=== PATIENT | female | born 1955 | race African-American/Black ===

== ENCOUNTER → 2016-11-26 | Outpatient (CLI) | payer MEDICARE ==
[2016-11-28 08:45] LABS: ABSOLUTE BASOPHILS # (AUTO) 0.1 10^3/uL (0.0-0.2); ABSOLUTE EOSINOPHILS # (AUTO) 0.2 10^3/uL (0.0-0.6); ABSOLUTE LYMPHOCYTES (AUTO) 3.1 10^3/uL (0.5-4.7); ABSOLUTE MONOCYTES (AUTO) 0.5 10^3/uL (0.1-1.4); ABSOLUTE NEUT (AUTO) 5.3 10^3/uL (1.7-8.2); BASOPHILS % (AUTO) 1.1 % (0-2); EOSINOPHILS % (AUTO) 2.3 % (0-6); HEMATOCRIT 44.1 % (36.0-47.0); HEMOGLOBIN 14.8 g/dL (12.0-15.5); HGB HCT DIFFERENCE 0.3; LYMPHOCYTES % (AUTO) 33.5 % (13-45); MEAN CORPUSCULAR HEMOGLOBIN 27.2 pg (27.0-33.4); MEAN CORPUSCULAR HGB CONC 33.5 g/dL (32.0-36.0); MEAN CORPUSCULAR VOLUME 81 fl (80-97); MONOCYTES % (AUTO) 5.6 % (3-13); RED BLOOD COUNT 5.43 10^6/uL (3.72-5.28); RED CELL DISTRIBUTION WIDTH 14.7 % (11.5-14.0); SEGMENTED NEUTROPHILS % (AUTO) 57.5 % (42-78); WHITE BLOOD COUNT 9.2 10^3/uL (4.0-10.5)
[2016-11-28 08:57] LABS: ALANINE AMINOTRANSFERASE 32 U/L (9-52); ALKALINE PHOSPHATASE 106 U/L (38-126); ANION GAP 7 (5-19); ASPARTATE AMINO TRANSFERASE 18 U/L (14-36); BILIRUBIN,DIRECT 0.3 mg/dL (0.0-0.4); BILIRUBIN,TOTAL 0.7 mg/dL (0.2-1.3); BLOOD UREA NITROGEN 11 mg/dL (7-20); CALCIUM 10.1 mg/dL (8.4-10.2); CARBON DIOXIDE 31 mmol/L (22-30); CHLORIDE 105 mmol/L (98-107); CREATININE RESULT 0.88 mg/dL (0.52-1.25); GLUCOSE 190 mg/dL (75-110); POTASSIUM 4.4 mmol/L (3.6-5.0); SODIUM 142.6 mmol/L (137-145)
== END ==
LOC: OD 11:54
PROVIDERS: ATTEND Internal Medicine
DX: R73.9 Hyperglycemia, unspecified (principal); Z12.11 Encounter for screening for malignant neoplasm of colon
CPT/HCPCS: 36415; 80053; 83036; 85025

== ENCOUNTER 2019-01-03 07:53 | Inpatient (IN) | payer MEDICARE ==
[2019-01-03] MEDS ORDERED: IPRATROPIUM/ALBUTEROL 0.5-2.5 MG/3 ML AMPUL NEB ONE (08:17)
[2019-01-03] MEDS ORDERED: ALBUTEROL SULFATE 0.083% NEB 2.5 MG/3 ML AMPUL NEB ONE ×3 (08:17→11:26)
[2019-01-03] MEDS ORDERED: METHYLPREDNISOLONE INJ 125 MG/2 ML SDV IV ONE (08:17)
--- NOTE | 2019-01-03 08:21 | ER Document Report ---
ED Respiratory Problem - General Chief Complaint: Breathing Difficulty Stated Complaint: CHEST PAIN,DIFFICULTY BREATHING Time Seen by Provider: 01/03/19 08:11 Notes: 63 year old female with h/o htn and asthma complains of cough and wheeze and sob for 3 days. No fever or chills. No sick contacts and she has no h/o cad. Nonsmoker. TRAVEL OUTSIDE OF THE [place] IN LAST 30 DAYS: No - HPI Patient complains to provider of: Asthma Onset: Other - 3 days total Duration: Continuous Quality of pain: Achy Severity: Moderate Pain Level: 1 Short of Breath: Moderate Sputum amount: None - Related Data Allergies/Adverse Reactions: Aspirin Allergy (Uncoded 01/03/19 08:12) Crabs Allergy (Uncoded 01/03/19 08:12) Past Medical History - Social History Smoking Status: Never Smoker Chew tobacco use (# tins/day): No Frequency of alcohol use: None Drug Abuse: None Patient has suicidal ideation: No Patient has homicidal ideation: No Review of Systems - Review of Systems Constitutional: No symptoms reported EENT: No symptoms reported Cardiovascular: No symptoms reported Respiratory: See HPI, Cough Gastrointestinal: No symptoms reported Genitourinary: No symptoms reported Female Genitourinary: No symptoms reported Musculoskeletal: No symptoms reported Skin: No symptoms reported Hematologic/Lymphatic: No symptoms reported Neurological/Psychological: No symptoms reported Physical Exam - Vital signs Vitals: Temp Pulse Resp BP Pulse Ox 98.4 F 95 24 H 187/90 H 93 01/03/19 08:03 01/03/19 08:03 01/03/19 08:03 01/03/19 08:03 01/03/19 08:03 Interpretation: Normal - General General appearance: Appears well, Alert - HEENT Head: Normocephalic, Atraumatic Eyes: Normal Pupils: PERRL - Respiratory Respiratory status: Respiratory distress - mild Chest status: Nontender Breath sounds: Decreased air movement, Wheezing Chest palpation: Normal - Cardiovascular Rhythm: Regular Heart sounds: Normal auscultation Murmur: No - Abdominal Inspection: Normal Distension: No distension Bowel sounds: Normal Tenderness: Nontender Organomegaly: No organomegaly - Back Back: Normal, Nontender - Extremities General upper extremity: Normal inspection, Nontender, Normal color, Normal ROM, Normal temperature General lower extremity: Normal inspection, Nontender, Normal color, Normal ROM, Normal temperature, Normal weight bearing. No: Shady's sign - Neurological Neuro grossly intact: Yes Cognition: Normal Orientation: AAOx4 [place] Coma Scale Eye Opening: Spontaneous Leonidas Coma Scale Verbal: Oriented Leonidas Coma Scale Motor: Obeys Commands Leonidas Coma Scale Total: 15 Speech: Normal Motor strength normal: LUE, RUE, LLE, RLE Sensory: Normal - Psychological Associated symptoms: Normal affect, Normal mood - Skin Skin Temperature: Warm Skin Moisture: Dry Skin Color: Normal Course - Re-evaluation Re-evalutation: 01/03/19 13:04 MDM 63 year old with cough and wheeze and sob. No fever. Moderately htn still. With sob episodes she has some left scapular pain. I have called and spoken with Grace and then Kristal who will graciously admit pt for further evaluation. - Vital Signs Vital signs: Temp Pulse Resp BP Pulse Ox 98.4 F 95 19 209/102 H 99 01/03/19 08:03 01/03/19 08:03 01/03/19 11:32 01/03/19 11:32 01/03/19 11:32 - Laboratory Result Diagrams: 01/03/19 08:30 01/03/19 08:30 Laboratory results interpreted by me: 01/03/19 01/03/19 08:30 08:30 RBC 5.54 H MCH 26.9 L RDW 14.3 H Glucose 189 H Creatine Kinase 198 H - Diagnostic Test Radiology reviewed: Image reviewed, Reports reviewed - EKG Interpretation by Me EKG shows normal: Sinus rhythm Rate: Normal Rhythm: NSR - NSR Nl Walters no st elevation or depression my interpretation. Critical Care Note - Critical Care Note Total time excluding time spent on procedures (mins): 30 Discharge - Discharge Clinical Impression: Dyspnea Qualifiers: Dyspnea type: unspecified Qualified Code(s): R06.00 - Dyspnea, unspecified Condition: Good Disposition: ADMITTED INPATIENT Admitting Provider: Kristal (Hospitalist) Unit Admitted: Telemetry
[2019-01-03 09:03] LABS: ABSOLUTE BASOPHILS # (AUTO) 0.1 10^3/uL (0.0-0.2); ABSOLUTE EOSINOPHILS # (AUTO) 0.4 10^3/uL (0.0-0.6); ABSOLUTE LYMPHOCYTES (AUTO) 2.4 10^3/uL (0.5-4.7); ABSOLUTE MONOCYTES (AUTO) 0.6 10^3/uL (0.1-1.4); ABSOLUTE NEUT (AUTO) 5.9 10^3/uL (1.7-8.2); BASOPHILS % (AUTO) 0.6 % (0-2); EOSINOPHILS % (AUTO) 4.2 % (0-6); HEMATOCRIT 44.7 % (36.0-47.0); HEMOGLOBIN 14.9 g/dL (12.0-15.5); MEAN CORPUSCULAR HEMOGLOBIN 26.9 pg (27.0-33.4); MEAN CORPUSCULAR HGB CONC 33.4 g/dL (32.0-36.0); MEAN CORPUSCULAR VOLUME 81 fl (80-97); MONOCYTES % (AUTO) 6.8 % (3-13); PLATELET COUNT 227 10^3/uL (150-450); RED BLOOD COUNT 5.54 10^6/uL (3.72-5.28); RED CELL DISTRIBUTION WIDTH 14.3 % (11.5-14.0); SEGMENTED NEUTROPHILS % (AUTO) 62.4 % (42-78); TOTAL CELLS COUNTED % (AUTO) 100 %; WHITE BLOOD COUNT 9.4 10^3/uL (4.0-10.5)
[2019-01-03 09:04] LABS: ALBUMIN 4.4 g/dL (3.5-5.0); ALKALINE PHOSPHATASE 100 U/L (38-126); ANION GAP 9 (5-19); ASPARTATE AMINO TRANSFERASE 22 U/L (14-36); BILIRUBIN,DIRECT 0.1 mg/dL (0.0-0.4); BILIRUBIN,TOTAL 0.6 mg/dL (0.2-1.3); BLOOD UREA NITROGEN 9 mg/dL (7-20); CARBON DIOXIDE 27 mmol/L (22-30); CHLORIDE 105 mmol/L (98-107); CREATINE KINASE 198 U/L (30-135); GLUCOSE 189 mg/dL (75-110); POTASSIUM 4.1 mmol/L (3.6-5.0); TOTAL PROTEIN 7.3 g/dL (6.3-8.2)
--- NOTE | 2019-01-03 09:11 | RADIOLOGY REPORT (SQ) ---
EXAM DESCRIPTION: CHEST SINGLE VIEW COMPLETED DATE/TIME: 01/03/2019 8:53 am REASON FOR STUDY: htn COMPARISON: None. EXAM PARAMETERS: NUMBER OF VIEWS: One view. TECHNIQUE: Single frontal radiographic view of the chest acquired. RADIATION DOSE: NA LIMITATIONS: None. FINDINGS: LUNGS AND PLEURA: No opacities, masses or pneumothorax. No pleural effusion. MEDIASTINUM AND HILAR STRUCTURES: No masses. Contour normal. HEART AND VASCULAR STRUCTURES: Heart normal in size. Normal vasculature. BONES: No acute findings. HARDWARE: None in the chest. OTHER: No other significant finding. IMPRESSION: NO ACUTE RADIOGRAPHIC FINDING IN THE CHEST. TECHNICAL DOCUMENTATION: JOB ID: [id number]- All Rights Reserved Reading location - IP/workstation name: [email or web address]
[2019-01-03 09:15] LABS: NT PRO BNP 122 pg/mL (5-900)
--- NOTE | 2019-01-03 09:18 | EKG REPORT ---
SEVERITY:- ABNORMAL ECG - SINUS RHYTHM PROBABLE LEFT ATRIAL ABNORMALITY PROBABLE LEFT VENTRICULAR HYPERTROPHY : Confirmed by: Lazara Conrad 03-Jan-2019 09:17:00
[2019-01-03 09:19] LABS: TROPONIN I < 0.012 ng/mL
[2019-01-03] MEDS ORDERED: CARVEDILOL 12.5 MG TABLET PO ONE (11:25)
[2019-01-03] MEDS ORDERED: HYDRALAZINE HCL INJ/PF 20 MG/1 ML SDV IV ONE (12:29)
--- NOTE | 2019-01-03 15:04 | PDOC H&P ---
History of Present Illness Admission Date/PCP: 01/03/19 13:10 Patient complains of: SOB, wheezing History of Present Illness: DIETER HUNTER is a 63 year old female with no significant past medical history aside from hypertension and well-controlled asthma who presented with wheezing and increasing shortness of breath. Patient says that his asthma has been well controlled and she has not had an attack in the past 20 years. She says that 1 of her grandkids had a URTI a few days ago and she shared a water container with the grandkid and after a few days she started having the same symptoms of sneezing, runny nose and coughing. She says that the coughing started to be more productive with yellowish and greenish sputum. She says that she then developed progressive shortness of breath since Monday. She says she also could appreciate associated wheezing. She denies any fever or chills. In the ER, she was noted to have significant bilateral whee zing and was found to be tachypneic. She was given breathing treatments and IV steroids and did get some relief. She says she does not have chest pain but it is more of her chest discomfort which she described "as if water is rising up on my chest". Upon encounter, she still has bilateral wheezing. She says the breathing treatments did help but she is now starting to feel short of breath again. Past Medical History Cardiac Medical History: Reports: Hypertension Pulmonary Medical History: Reports: Asthma Endocrine Medical History: Reports: Diabetes Mellitus Type 2 Social History Smoking Status: Never Smoker Family History Parental Family History Reviewed: Yes - Patient's brother did have an NE at 44 years old and her mother had NE as Children Family History Reviewed: No Sibling(s) Family History Reviewed.: No Medication/Allergy Allergies/Adverse Reactions: Aspirin Allergy (Unknown, Uncoded 01/03/19 14:39) Crabs Allergy (Uncoded 01/03/19 08:12) Review of Systems All systems: reviewed and no additional remarkable complaints except as stated - As mentioned in HPI Physical Exam Vital Signs: Temp Pulse Resp BP Pulse Ox 98.4 F 95 23 H 177/95 H 100 01/03/19 08:03 01/03/19 08:03 01/03/19 14:02 01/03/19 14:02 01/03/19 14:02 Intake & Output 01/02/19 01/03/19 01/04/19 06:59 06:59 06:59 Weight 211 lb 10.3 oz General appearance: PRESENT: no acute distress, well-developed, well-nourished Head exam: PRESENT: atraumatic, normocephalic Eye exam: PRESENT: conjunctiva pink, EOMI, PERRLA. ABSENT: scleral icterus Ear exam: PRESENT: normal external ear exam Mouth exam: PRESENT: moist, tongue midline Neck exam: ABSENT: carotid bruit, JVD, lymphadenopathy, thyromegaly Respiratory exam: PRESENT: rhonchi, wheezes. ABSENT: rales Cardiovascular exam: PRESENT: RRR. ABSENT: diastolic murmur, rubs, systolic murmur Pulses: PRESENT: normal dorsalis pedis pul GI/Abdominal exam: PRESENT: normal bowel sounds, soft. ABSENT: distended, guarding, mass, organolmegaly, rebound, tenderness Rectal exam: PRESENT: deferred Extremities exam: PRESENT: full ROM. ABSENT: calf tenderness, clubbing, pedal edema Neurological exam: PRESENT: alert, awake, oriented to person, oriented to place, oriented to time, oriented to situation, CN II-XII grossly intact. ABSENT: motor sensory deficit Results Laboratory Results: 01/03/19 08:30 01/03/19 08:30 01/03/19 01/03/19 08:30 08:30 WBC 9.4 RBC 5.54 H Hgb 14.9 Hct 44.7 MCV 81 MCH 26.9 L MCHC 33.4 RDW 14.3 H Plt Count 227 Seg Neutrophils % 62.4 Sodium 141.0 Potassium 4.1 Chloride 105 Carbon Dioxide 27 Anion Gap 9 BUN 9 Creatinine 0.74 Est GFR ( Amer) > 60 Glucose 189 H Calcium 10.0 Total Bilirubin 0.6 AST 22 Alkaline Phosphatase 100 Total Protein 7.3 Albumin 4.4 01/03/19 01/03/19 08:30 08:30 Creatine Kinase 198 H CK-MB (CK-2) 1.50 Troponin I < 0.012 NT-Pro-B Natriuret Pep 122 Impressions: Chest X-Ray 01/03/19 08:16 IMPRESSION: NO ACUTE RADIOGRAPHIC FINDING IN THE CHEST. Assessment and Plan - Diagnosis (1) Acute respiratory failure with hypoxia Is this a current diagnosis for this admission?: Yes Plan: There is a asthma exacerbation. Currently saturating on 2 L nasal cannula. BiPAP PRN. (2) Asthma exacerbation Is this a current diagnosis for this admission?: Yes Plan: We will start patient on Solu-Medrol 40 mg IV every 8. Scheduled breathing treatments. Will empirically start her on Rocephin and she does complain of significantly productive of yellowish to greenish sputum. Will order for sputum culture as well. (3) Hypertensive urgency Is this a current diagnosis for this admission?: Yes Plan: Blood pressure in the ER was elevated at 209/102. Will start patient on losartan can090 mg daily. Will also add hydralazine PRN. - Time Time Spent with patient: 25-34 minutes
--- NOTE | 2019-01-03 15:07 | ADVANCED CARE ---
- Diagnosis (1) Acute respiratory failure with hypoxia Diagnosis Current: Yes (2) Asthma exacerbation Diagnosis Current: Yes (3) Hypertensive urgency Diagnosis Current: Yes Resuscitation Status: Do Not Resuscitate Discussion: Discussed with patient. She says she does not want to receive any form of chest compressions, defibrillation or mechanical ventilation if the need arises. She will be a DNR/DNI. She says her daughter, Taras is her surrogate medical decision maker.
[2019-01-03] MEDS: LOSARTAN POTASSIUM 50 MG TABLET PO SCH (15:18)
[2019-01-03] MEDS: CEFTRIAXONE 1 GM/D5W RTU 1 GM/50 ML RTUPB IV SCH (15:19)
[2019-01-03] MEDS: IPRATROPIUM/ALBUTEROL 0.5-2.5 MG/3 ML AMPUL NEB SCH ×2 (15:19→20:39)
[2019-01-03] MEDS: HYDRALAZINE HCL INJ/PF 20 MG/1 ML SDV IV PRN ×2 (15:19→20:30)
[2019-01-03 16:55] LABS: ARTERIAL BLOOD FIO2 ROOM AIR; ARTERIAL BLOOD H2CO3 1.02 mmol/L (1.05-1.35); ARTERIAL BLOOD O2 SATURATION 92.8 % (94-98); ARTERIAL BLOOD PCO2 33.8 mmHg (35-45); ARTERIAL BLOOD PH 7.47 (7.35-7.45); ARTERIAL BLOOD PO2 60.5 mmHg (80-100); ARTERIAL BLOOD TOTAL CO2 25.1 mmol/L (21-25)
[2019-01-03] MEDS: AMLODIPINE BESYLATE 10 MG TABLET PO SCH (18:48)
[2019-01-03] MEDS ORDERED: LABETALOL HCL INJ 20 MG/4 ML DISP.SYRIN IV ONE (19:00)
[2019-01-03] MEDS: HEPARIN SOD (PORCINE) 5,000 UNIT/ML 1 ML VIAL SUBCUT SCH (21:55)
[2019-01-03] MEDS: METHYLPREDNISOLONE INJ 40 MG/1 ML SDV IV SCH (21:55)
[2019-01-04] MEDS: IPRATROPIUM/ALBUTEROL 0.5-2.5 MG/3 ML AMPUL NEB SCH ×6 (00:14→20:19)
[2019-01-04] MEDS ORDERED: TRAZODONE HCL 50 MG TABLET PO ONE (01:00)
[2019-01-04] MEDS: HYDRALAZINE HCL INJ/PF 20 MG/1 ML SDV IV PRN ×2 (04:06→19:49)
[2019-01-04] MEDS: METHYLPREDNISOLONE INJ 40 MG/1 ML SDV IV SCH ×3 (05:46→22:23)
[2019-01-04] MEDS: AMLODIPINE BESYLATE 10 MG TABLET PO SCH (10:07)
[2019-01-04] MEDS: LOSARTAN POTASSIUM 50 MG TABLET PO SCH (10:07)
[2019-01-04] MEDS: HEPARIN SOD (PORCINE) 5,000 UNIT/ML 1 ML VIAL SUBCUT SCH ×2 (10:07→22:22)
[2019-01-04] MEDS: CEFTRIAXONE 1 GM/D5W RTU 1 GM/50 ML RTUPB IV SCH (11:52)
--- NOTE | 2019-01-04 15:28 | RADIOLOGY REPORT (SQ) ---
EXAM DESCRIPTION: CHEST 2 VIEWS COMPLETED DATE/TIME: 01/04/2019 3:00 pm REASON FOR STUDY: SOB, ALSO FOR NM VQ SCAN COMPARISON: 01/03/2019. EXAM PARAMETERS: NUMBER OF VIEWS: two views TECHNIQUE: Digital Frontal and Lateral radiographic views of the chest acquired. RADIATION DOSE: NA LIMITATIONS: none FINDINGS: LUNGS AND PLEURA: No opacities, masses or pneumothorax. No pleural effusion. MEDIASTINUM AND HILAR STRUCTURES: No masses or contour abnormalities. HEART AND VASCULAR STRUCTURES: Heart normal size. No evidence for failure. BONES: No acute findings. HARDWARE: None in the chest. OTHER: No other significant finding. IMPRESSION: NO ACUTE RADIOGRAPHIC FINDING IN THE CHEST. TECHNICAL DOCUMENTATION: JOB ID: [id number]- All Rights Reserved Reading location - IP/workstation name: [email or web address]
--- NOTE | 2019-01-04 16:09 | RADIOLOGY REPORT (SQ) ---
EXAM DESCRIPTION: NM LUNG VENT/PERF SCAN COMPLETED DATE/TIME: 01/04/2019 3:37 pm REASON FOR STUDY: SOB, assess for PE COMPARISON: None. RADIONUCLIDE AND DOSE: 5.29 millicuries TC-99m MAA Intravenous 27.1 millicuries TC-99m DTPA Inhaled aerosol TECHNIQUE: Two views of the lungs acquired post ventilation of DTPA aerosol. Eight matching views o f the lungs acquired following injection of MAA. LIMITATIONS: Limited ventilation images due to difficult patient cooperation. FINDINGS: VENTILATION: Heterogenous distribution. PERFUSION: Perfusion images with normal homogenous activity and no wedge-shaped or segmental defects. No ventilation-perfusion mismatches. OTHER: No other significant finding. IMPRESSION: HETEROGENOUS DISTRIBUTION ON VENTILATION IMAGES. NORMAL PERFUSION LUNG SCAN. NEGATIVE FOR PULMONARY EMBOLI. TECHNICAL DOCUMENTATION: JOB ID: [id number] [employer] [employer]- All Rights Reserved Reading location - IP/workstation name: [email or web address]
[2019-01-04] MEDS: GUAIFENESIN SYRP 200 MG/10 ML UDC PO PRN ×2 (16:16→22:22)
--- NOTE | 2019-01-04 16:16 | PDOC PROGRESS REPORT ---
Subjective Progress Note for:: 01/04/19 Subjective:: This is a 63 year old female with no significant past medical history aside from hypertension and well-controlled asthma who presented with wheezing and increasing shortness of breath. She was admitted for asthma exacerbation. Started on IV steroids and scheduled breathing treatments. No acute event overnight. Upon encounter, she appears comfortable. She says he r shortness of breath is better today but she is definitely not at her baseline yet. She has bilateral wheezing albeit improved from yesterday. She denies chest pain. Reason For Visit: ACUTE HYPOXIC RESPIRATORY FAILURE, ASTHAMA Physical Exam Vital Signs: Temp Pulse Resp BP Pulse Ox 98.3 F 104 H 17 168/53 H 97 01/04/19 11:11 01/04/19 14:00 01/04/19 13:44 01/04/19 11:11 01/04/19 13:44 Intake & Output 01/03/19 01/04/19 01/05/19 06:59 06:59 06:59 Intake Total 850 0 Balance 850 0 Weight 210 lb 12.191 oz General appearance: PRESENT: no acute distress, well-developed, well-nourished Head exam: PRESENT: atraumatic, normocephalic Eye exam: PRESENT: conjunctiva pink, EOMI, PERRLA. ABSENT: scleral icterus Ear exam: PRESENT: normal external ear exam Mouth exam: PRESENT: moist, tongue midline Neck exam: ABSENT: carotid bruit, JVD, lymphadenopathy, thyromegaly Respiratory exam: PRESENT: wheezes. ABSENT: rales, rhonchi Cardiovascular exam: PRESENT: RRR. ABSENT: diastolic murmur, rubs, systolic murmur Pulses: PRESENT: normal dorsalis pedis pul GI/Abdominal exam: PRESENT: normal bowel sounds, soft. ABSENT: distended, guarding, mass, organolmegaly, rebound, tenderness Rectal exam: PRESENT: deferred Extremities exam: PRESENT: full ROM. ABSENT: calf tenderness, clubbing, pedal edema Neurological exam: PRESENT: alert, awake, oriented to person, oriented to place, oriented to time, oriented to situation, CN II-XII grossly intact. ABSENT: motor sensory deficit Results Laboratory Results: 01/03/19 08:30 01/03/19 08:30 01/03/19 16:42 Carbonic Acid 1.02 L HCO3/H2CO3 Ratio 23:1 ABG pH 7.47 H ABG pCO2 33.8 L ABG pO2 60.5 L ABG HCO3 24.0 ABG O2 Saturation 92.8 L ABG Base Excess 1.0 FiO2 ROOM AIR 01/03/19 22:00 Sputum Gram Stain - Final 01/03/19 22:00 Sputum Sputum Culture - Final 01/03/19 01/03/19 08:30 08:30 Creatine Kinase 198 H CK-MB (CK-2) 1.50 Troponin I < 0.012 NT-Pro-B Natriuret Pep 122 Impressions: Chest X-Ray 01/04/19 00:00 IMPRESSION: NO ACUTE RADIOGRAPHIC FINDING IN THE CHEST. Assessment and Plan - Diagnosis (1) Acute respiratory failure with hypoxia Is this a current diagnosis for this admission?: Yes Plan: Secondary to asthma exacerbation. Currently saturating on 2 L nasal cannula. BiPAP PRN. (2) Asthma exacerbation Is this a current diagnosis for this admission?: Yes Plan: Continue Solu-Medrol and scheduled breathing treatments. (3) Hypertensive urgency Is this a current diagnosis for this admission?: Yes Plan: Improved. Continue amlodipine and losartan. - Time Time Spent with patient: 25-34 minutes
[2019-01-04] MEDS: TRAZODONE HCL 50 MG TABLET PO SCH (22:22)
[2019-01-05] MEDS: IPRATROPIUM/ALBUTEROL 0.5-2.5 MG/3 ML AMPUL NEB SCH ×2 (02:12→07:42)
[2019-01-05] MEDS: HYDRALAZINE HCL INJ/PF 20 MG/1 ML SDV IV PRN ×2 (03:35→12:39)
[2019-01-05] MEDS: METHYLPREDNISOLONE INJ 40 MG/1 ML SDV IV SCH ×3 (06:16→21:06)
[2019-01-05] MEDS: HEPARIN SOD (PORCINE) 5,000 UNIT/ML 1 ML VIAL SUBCUT SCH ×2 (10:35→21:06)
[2019-01-05] MEDS: AMLODIPINE BESYLATE 10 MG TABLET PO SCH (10:35)
[2019-01-05] MEDS: GUAIFENESIN SYRP 200 MG/10 ML UDC PO PRN (10:35)
[2019-01-05] MEDS: LOSARTAN POTASSIUM 50 MG TABLET PO SCH (10:35)
[2019-01-05] MEDS: LEVALBUTEROL HCL NEB 1.25 MG/3 ML AMPUL NEB SCH ×2 (11:00→16:02)
[2019-01-05] MEDS: CEFTRIAXONE 1 GM/D5W RTU 1 GM/50 ML RTUPB IV SCH (11:25)
[2019-01-05] MEDS: POLYETHYLENE GLYCOL 3350 POWDER 17 GM/1 PACKET PO PRN ×2 (12:39→21:06)
--- NOTE | 2019-01-05 14:17 | PDOC PROGRESS REPORT ---
Subjective Progress Note for:: 01/05/19 Subjective:: This is a 63 year old female with no significant past medical history aside from hypertension and well-controlled asthma who presented with wheezing and increasing shortness of breath. She was admitted for asthma exacerbation. Started on IV steroids and scheduled breathing treatments. 01/04: Upon encounter, she appears comfortable. She says her shortness of breath is better today but she is definitely not at her baseline yet. She has bilateral wheezing albeit improved from yesterday. She denies chest pain. 01/05: No acute event overnight. Patient reportedly had after breathing treatments but reported she had recurrence of shortness of breath and wheezing after she went to the bathroom. Upon encounter, she does have bilateral wheezing slightly more prominent compared to yesterday. Reason For Visit: ACUTE HYPOXIC RESPIRATORY FAILURE, ASTHAMA Physical Exam Vital Signs: Temp Pulse Resp BP Pulse Ox 97.6 F 94 18 170/69 H 93 01/05/19 11:36 01/05/19 11:36 01/05/19 11:00 01/05/19 11:36 01/05/19 11:36 Intake & Output 01/04/19 01/05/19 01/06/19 06:59 06:59 06:59 Intake Total 850 1490 Balance 850 1490 Weight 210 lb 12.191 oz 212 lb 8.41 oz General appearance: PRESENT: no acute distress, well-developed, well-nourished Head exam: PRESENT: atraumatic, normocephalic Eye exam: PRESENT: conjunctiva pink, EOMI, PERRLA. ABSENT: scleral icterus Ear exam: PRESENT: normal external ear exam Mouth exam: PRESENT: moist, tongue midline Neck exam: ABSENT: carotid bruit, JVD, lymphadenopathy, thyromegaly Respiratory exam: PRESENT: wheezes. ABSENT: rales, rhonchi Cardiovascular exam: PRESENT: RRR. ABSENT: diastolic murmur, rubs, systolic murmur Pulses: PRESENT: normal dorsalis pedis pul GI/Abdominal exam: PRESENT: normal bowel sounds, soft. ABSENT: distended, guarding, mass, organolmegaly, rebound, tenderness Rectal exam: PRESENT: deferred Extremities exam: PRESENT: full ROM. ABSENT: calf tenderness, clubbing, pedal edema Neurological exam: PRESENT: alert, awake, oriented to person, oriented to place, oriented to time, oriented to situation, CN II-XII grossly intact. ABSENT: motor sensory deficit Results Laboratory Results: 01/03/19 08:30 01/03/19 08:30 01/03/19 22:00 Sputum Gram Stain - Final 01/03/19 22:00 Sputum Sputum Culture - Final 01/03/19 01/03/19 08:30 08:30 Creatine Kinase 198 H CK-MB (CK-2) 1.50 Troponin I < 0.012 NT-Pro-B Natriuret Pep 122 Impressions: Chest X-Ray 01/04/19 00:00 IMPRESSION: NO ACUTE RADIOGRAPHIC FINDING IN THE CHEST. Lung Scan-VQ NM 01/04/19 12:52 IMPRESSION: HETEROGENOUS DISTRIBUTION ON VENTILATION IMAGES. NORMAL PERFUSION LUNG SCAN. NEGATIVE FOR PULMONARY EMBOLI. Assessment and Plan - Diagnosis (1) Acute respiratory failure with hypoxia Is this a current diagnosis for this admission?: Yes Plan: Secondary to asthma exacerbation. Currently saturating on 2 L nasal cannula. BiPAP PRN. (2) Asthma exacerbation Qualifiers: Asthma severity: severe Is this a current diagnosis for this admission?: Yes Plan: Continue Solu-Medrol and scheduled breathing treatments. 01/05: We will add Xopenex on top of DuoNeb's. Continue Solu-Medrol. (3) Hypertensive urgency Is this a current diagnosis for this admission?: Yes Plan: Improved. Continue amlodipine and losartan. 01/05: Add hydrochlorothiazide. - Time Time Spent with patient: 25-34 minutes
[2019-01-05] MEDS: HYDROCHLOROTHIAZIDE 25 MG TABLET PO SCH (14:44)
[2019-01-05] MEDS: TRAZODONE HCL 50 MG TABLET PO SCH (21:06)
[2019-01-06] MEDS: LEVALBUTEROL HCL NEB 1.25 MG/3 ML AMPUL NEB SCH ×4 (00:34→23:42)
[2019-01-06] MEDS: HYDRALAZINE HCL INJ/PF 20 MG/1 ML SDV IV PRN ×2 (04:09→12:02)
[2019-01-06] MEDS: IPRATROPIUM/ALBUTEROL 0.5-2.5 MG/3 ML AMPUL NEB PRN ×2 (04:27→13:42)
[2019-01-06] MEDS: METHYLPREDNISOLONE INJ 40 MG/1 ML SDV IV SCH ×3 (05:36→21:08)
[2019-01-06] MEDS: HYDROCHLOROTHIAZIDE 25 MG TABLET PO SCH (09:12)
[2019-01-06] MEDS: LOSARTAN POTASSIUM 50 MG TABLET PO SCH (09:12)
[2019-01-06] MEDS: AMLODIPINE BESYLATE 10 MG TABLET PO SCH (09:12)
[2019-01-06] MEDS: HEPARIN SOD (PORCINE) 5,000 UNIT/ML 1 ML VIAL SUBCUT SCH ×2 (09:13→21:09)
[2019-01-06] MEDS: CEFTRIAXONE 1 GM/D5W RTU 1 GM/50 ML RTUPB IV SCH (12:10)
[2019-01-06] MEDS ORDERED: LIDOCAINE 2% VISCOUS SOLN 20 ML UDCUP PO ONE (12:30)
[2019-01-06] MEDS ORDERED: METOCLOPRAMIDE HCL ORAL SOLN 10 MG/10 ML UDCUP PO ONE (12:30)
[2019-01-06] MEDS ORDERED: MAG HYDROX/AL HYDROX/SIMETH SUSP 30 ML UDCUP PO ONE (12:30)
--- NOTE | 2019-01-06 13:26 | PDOC PROGRESS REPORT ---
Subjective Progress Note for:: 01/06/19 Subjective:: This is a 63 year old female with no significant past medical history aside from hypertension and well-controlled asthma who presented with wheezing and increasing shortness of breath. She was admitted for asthma exacerbation. Started on IV steroids and scheduled breathing treatments. 01/04: Upon encounter, she appears comfortable. She says her shortness of breath is better today but she is definitely not at her baseline yet. She has bilateral wheezing albeit improved from yesterday. She denies chest pain. 01/05: No acute event overnight. Patient reports relief after breathing treatments but reported she had recurrence of shortness of breath and wheezing after she went to the bathroom. Upon encounter, she does have bilateral wheezing slightly more prominent compared to yesterday. 01/06: Patient still reports SOB and wheezing only slightly improved from yesterday. She has bilateral wheezing this morning on exam which are less prominent compared to yesterday. Reason For Visit: ACUTE HYPOXIC RESPIRATORY FAILURE, ASTHAMA Physical Exam Vital Signs: Temp Pulse Resp BP Pulse Ox 97.6 F 90 16 171/71 H 95 01/06/19 11:39 01/06/19 11:39 01/06/19 09:04 01/06/19 11:39 01/06/19 11:39 Intake & Output 01/05/19 01/06/19 01/07/19 06:59 06:59 06:59 Intake Total 1490 290 Output Total 1900 Balance 1490 -1610 Weight 212 lb 8.41 oz 213 lb 13.574 oz General appearance: PRESENT: no acute distress, well-developed, well-nourished Head exam: PRESENT: atraumatic, normocephalic Eye exam: PRESENT: conjunctiva pink, EOMI, PERRLA. ABSENT: scleral icterus Ear exam: PRESENT: normal external ear exam Mouth exam: PRESENT: moist, tongue midline Neck exam: ABSENT: carotid bruit, JVD, lymphadenopathy, thyromegaly Respiratory exam: PRESENT: wheezes. ABSENT: rales, rhonchi Cardiovascular exam: PRESENT: RRR. ABSENT: diastolic murmur, rubs, systolic murmur Pulses: PRESENT: normal dorsalis pedis pul GI/Abdominal exam: PRESENT: normal bowel sounds, soft. ABSENT: distended, guard ing, mass, organolmegaly, rebound, tenderness Rectal exam: PRESENT: deferred Extremities exam: PRESENT: full ROM. ABSENT: calf tenderness, clubbing, pedal edema Neurological exam: PRESENT: alert, awake, oriented to person, oriented to place, oriented to time, oriented to situation, CN II-XII grossly intact. ABSENT: motor sensory deficit Results Laboratory Results: 01/03/19 08:30 01/03/19 08:30 01/03/19 01/03/19 01/06/19 08:30 08:30 11:45 Creatine Kinase 198 H CK-MB (CK-2) 1.50 Troponin I < 0.012 < 0.012 NT-Pro-B Natriuret Pep 122 Impressions: Chest X-Ray 01/04/19 00:00 IMPRESSION: NO ACUTE RADIOGRAPHIC FINDING IN THE CHEST. Lung Scan-VQ NM 01/04/19 12:52 IMPRESSION: HETEROGENOUS DISTRIBUTION ON VENTILATION IMAGES. NORMAL PERFUSION LUNG SCAN. NEGATIVE FOR PULMONARY EMBOLI. Assessment and Plan - Diagnosis (1) Acute respiratory failure with hypoxia Is this a current diagnosis for this admission?: Yes Plan: Secondary to severe asthma exacerbation. Currently saturating on 2 L nasal cannula. BiPAP PRN. (2) Asthma exacerbation Qualifiers: Asthma severity: severe Is this a current diagnosis for this admission?: Yes Plan: Continue Solu-Medrol and scheduled breathing treatments. 01/05: We will add Xopenex on top of DuoNeb's. Continue Solu-Medrol. 01/06: Keep solumedrol at 40 mg q8h for now. Cotnnue Xopenex and duoneb. (3) Hypertensive urgency Is this a current diagnosis for this admission?: Yes Plan: Improved. Continue amlodipine and losartan. 01/05: Add hydrochlorothiazide. - Time Time Spent with patient: 25-34 minutes
[2019-01-06] MEDS: TRAZODONE HCL 50 MG TABLET PO SCH (21:09)
[2019-01-06] MEDS: POLYETHYLENE GLYCOL 3350 POWDER 17 GM/1 PACKET PO PRN (21:16)
[2019-01-07] MEDS: METHYLPREDNISOLONE INJ 40 MG/1 ML SDV IV SCH (05:59)
[2019-01-07] MEDS: LEVALBUTEROL HCL NEB 1.25 MG/3 ML AMPUL NEB SCH ×3 (07:44→23:40)
[2019-01-07] MEDS: AMLODIPINE BESYLATE 10 MG TABLET PO SCH (09:10)
[2019-01-07] MEDS: LOSARTAN POTASSIUM 50 MG TABLET PO SCH (09:10)
[2019-01-07] MEDS: HYDROCHLOROTHIAZIDE 25 MG TABLET PO SCH (09:11)
--- NOTE | 2019-01-07 11:23 | PDOC PROGRESS REPORT ---
Subjective Progress Note for:: 01/07/19 Subjective:: This is a 63 year old female with no significant past medical history aside from hypertension and well-controlled asthma who presented with wheezing and increasing shortness of breath. She was admitted for asthma exacerbation. Started on IV steroids and scheduled breathing treatments. 01/04: Upon encounter, she appears comfortable. She says her shortness of breath is better today but she is definitely not at her baseline yet. She has bilateral wheezing albeit improved from yesterday. She denies chest pain. 01/05: No acute event overnight. Patient reports relief after breathing treatments but reported she had recurrence of shortness of breath and wheezing after she went to the bathroom. Upon encounter, she does have bilateral wheezing slightly more prominent compared to yesterday. 01/06: Patient still reports SOB and wheezing only slightly improved from yesterday. She has bilateral wheezing this morning on exam which are less prominent compared to yesterday. 01/07: No acute event overnight. She says her SOB has improved significantly overnight. She feels she is returning to her baseline. Wheezing continues to improve upon examination. Will decrease IV steroids. Anticipate switching to oral steroids and possible discharge in the next 24 hrs. Reason For Visit: ACUTE HYPOXIC RESPIRATORY FAILURE,ASTHAMA Physical Exam Vital Signs: Temp Pulse Resp BP Pulse Ox 98.0 F 90 16 150/67 H 98 01/07/19 07:06 01/07/19 07:45 01/07/19 07:45 01/07/19 07:06 01/07/19 07:45 Intake & Output 01/06/19 01/07/19 01/08/19 06:59 06:59 06:59 Intake Total 290 770 Output Total 1900 5150 Balance -1610 -4380 Weight 213 lb 13.574 oz 212 lb 1.355 oz General appearance: PRESENT: no acute distress, well-developed, well-nourished Head exam: PRESENT: atraumatic, normocephalic Eye exam: PRESENT: conjunctiva pink, EOMI, PERRLA. ABSENT: scleral icterus Ear exam: PRESENT: normal external ear exam Mouth exam: PRESENT: moist, tongue midline Neck exam: ABSENT: carotid bruit, JVD, lymphadenopathy, thyromegaly Respiratory exam: PRESENT: rhonchi, wheezes. ABSENT: rales Cardiovascular exam: PRESENT: RRR. ABSENT: diastolic murmur, rubs, systolic murmur Pulses: PRESENT: normal dorsalis pedis pul GI/Abdominal exam: PRESENT: normal bowel sounds, soft. ABSENT: distended, guarding, mass, organolmegaly, rebound, tenderness Rectal exam: PRESENT: deferred Extremities exam: PRESENT: full ROM. ABSENT: calf tenderness, clubbing, pedal edema Neurological exam: PRESENT: alert, awake, oriented to person, oriented to place, oriented to time, oriented to situation, CN II-XII grossly intact. ABSENT: motor sensory deficit Results Laboratory Results: 01/03/19 08:30 01/03/19 08:30 01/03/19 01/03/19 01/06/19 08:30 08:30 11:45 Creatine Kinase 198 H CK-MB (CK-2) 1.50 Troponin I < 0.012 < 0.012 NT-Pro-B Natriuret Pep 122 Impressions: Chest X-Ray 01/04/19 00:00 IMPRESSION: NO ACUTE RADIOGRAPHIC FINDING IN THE CHEST. Lung Scan-VQ NM 01/04/19 12:52 IMPRESSION: HETEROGENOUS DISTRIBUTION ON VENTILATION IMAGES. NORMAL PERFUSION LUNG SCAN. NEGATIVE FOR PULMONARY EMBOLI. Assessment and Plan - Diagnosis (1) Acute respiratory failure with hypoxia Is this a current diagnosis for this admission?: Yes Plan: Secondary to severe asthma exacerbation. Currently saturating on 2 L nasal cannula. Wean off O2 today. (2) Asthma exacerbation Qualifiers: Asthma severity: severe Is this a current diagnosis for this admission?: Yes Plan: Continue Solu-Medrol and scheduled breathing treatments. 01/05: We will add Xopenex on top of DuoNeb's. Continue Solu-Medrol. 01/06: Keep solumedrol at 40 mg q8h for now. Cotnnue Xopenex and duoneb. 01/07: Improving. Will decrease IV steroids. Anticipate switching to oral steroids and possible discharge in the next 24 hrs. (3) Hypertensive urgency Is this a current diagnosis for this admission?: Yes Plan: Improved. Continue amlodipine and losartan. 01/05: Add hydrochlorothiazide. - Time Time Spent with patient: 25-34 minutes
[2019-01-07] MEDS: CEFTRIAXONE 1 GM/D5W RTU 1 GM/50 ML RTUPB IV SCH (11:42)
[2019-01-07 12:56] LABS: ABSOLUTE LYMPHOCYTES (AUTO) 1.2 10^3/uL (0.5-4.7); ABSOLUTE MONOCYTES (AUTO) 0.8 10^3/uL (0.1-1.4); ABSOLUTE NEUT (AUTO) 11.7 10^3/uL (1.7-8.2); BASOPHILS % (AUTO) 0.2 % (0-2); HEMATOCRIT 47.9 % (36.0-47.0); HEMOGLOBIN 15.6 g/dL (12.0-15.5); LYMPHOCYTES % (AUTO) 8.7 % (13-45); MEAN CORPUSCULAR HEMOGLOBIN 26.7 pg (27.0-33.4); MEAN CORPUSCULAR HGB CONC 32.6 g/dL (32.0-36.0); MEAN CORPUSCULAR VOLUME 82 fl (80-97); MONOCYTES % (AUTO) 5.7 % (3-13); PLATELET COUNT 260 10^3/uL (150-450); RED BLOOD COUNT 5.85 10^6/uL (3.72-5.28); RED CELL DISTRIBUTION WIDTH 14.8 % (11.5-14.0); SEGMENTED NEUTROPHILS % (AUTO) 85.4 % (42-78); TOTAL CELLS COUNTED % (AUTO) 100 %; WHITE BLOOD COUNT 13.7 10^3/uL (4.0-10.5)
[2019-01-07] MEDS: HEPARIN SOD (PORCINE) 5,000 UNIT/ML 1 ML VIAL SUBCUT SCH ×2 (14:30→22:15)
[2019-01-07] MEDS ORDERED: METHYLPREDNISOLONE INJ 40 MG/1 ML SDV IV SCH (22:00)
[2019-01-07] MEDS: TRAZODONE HCL 50 MG TABLET PO SCH (22:15)
[2019-01-08] MEDS ORDERED: INFLUENZA QUAD (6MOS+) 2019-20 VAC 0.5 ML SYR IM ONE (06:50)
[2019-01-08] MEDS: LEVALBUTEROL HCL NEB 1.25 MG/3 ML AMPUL NEB SCH ×3 (07:32→23:55)
--- NOTE | 2019-01-08 08:40 | PDOC PROGRESS REPORT ---
Subjective Progress Note for:: 01/08/19 Subjective:: 01/08/2019-constipation Reason For Visit: ACUTE HYPOXIC RESPIRATORY FAILURE,ASTHAMA Physical Exam Vital Signs: Temp Pulse Resp BP Pulse Ox 97.5 F 101 H 14 162/77 H 91 L 01/07/19 23:17 01/08/19 07:32 01/08/19 07:32 01/07/19 23:17 01/08/19 07:32 Intake & Output 01/07/19 01/08/19 01/09/19 06:59 06:59 06:59 Intake Total 820 600 Output Total 5150 2600 Balance -4330 -2000 Weight 96.2 kg 93.3 kg General appearance: PRESENT: no acute distress, well-developed, well-nourished Neck exam: ABSENT: carotid bruit, JVD, lymphadenopathy, thyromegaly Respiratory exam: PRESENT: decreased breath sounds, symmetrical, unlabored, wheezes Cardiovascular exam: PRESENT: RRR. ABSENT: diastolic murmur, rubs, systolic murmur Pulses: PRESENT: normal dorsalis pedis pul Vascular exam: PRESENT: normal capillary refill GI/Abdominal exam: PRESENT: normal bowel sounds, soft. ABSENT: distended, guarding, mass, organolmegaly, rebound, tenderness Extremities exam: PRESENT: full ROM. ABSENT: calf tenderness, clubbing, pedal edema Neurological exam: PRESENT: alert, awake, oriented to person, oriented to place, oriented to time, oriented to situation, CN II-XII grossly intact. ABSENT: motor sensory deficit Psychiatric exam: PRESENT: appropriate affect, normal mood. ABSENT: homicidal ideation, suicidal ideation Skin exam: PRESENT: dry, intact, warm. ABSENT: cyanosis, rash Results Laboratory Results: 01/07/19 11:55 01/03/19 08:30 01/07/19 11:55 WBC 13.7 H RBC 5.85 H Hgb 15.6 H Hct 47.9 H MCV 82 MCH 26.7 L MCHC 32.6 RDW 14.8 H Plt Count 260 Seg Neutrophils % 85.4 H 01/03/19 01/03/19 01/06/19 08:30 08:30 11:45 Creatine Kinase 198 H CK-MB (CK-2) 1.50 Troponin I < 0.012 < 0.012 NT-Pro-B Natriuret Pep 122 Impressions: Chest X-Ray 01/04/19 00:00 IMPRESSION: NO ACUTE RADIOGRAPHIC FINDING IN THE CHEST. Lung Scan-VQ NM 01/04/19 12:52 IMPRESSION: HETEROGENOUS DISTRIBUTION ON VENTILATION IMAGES. NORMAL PERFUSION LUNG SCAN. NEGATIVE FOR PULMONARY EMBOLI. Assessment and Plan - Diagnosis (1) Acute respiratory failure with hypoxia Is this a current diagnosis for this admission?: Yes Plan: Secondary to severe asthma exacerbation. Currently saturating on 2 L nasal cannula. Wean off O2 today. 01/08/2019-improved. Patient is off O2 at this time. She does have slight wheeze noted I have DC'd her IV steroids and placed on prednisone 60 mill grams p.o. daily. We will continue to follow (2) Asthma exacerbation Qualifiers: Asthma severity: severe Is this a current diagnosis for this admission?: Yes Plan: Continue Solu-Medrol and scheduled breathing treatments. 01/05: We will add Xopenex on top of DuoNeb's. Continue Solu-Medrol. 01/06: Keep solumedrol at 40 mg q8h for now. Cotnnue Xopenex and duoneb. 01/07: Improving. Will decrease IV steroids. Anticipate switching to oral steroids and possible discharge in the next 24 hrs. 01/08/2019-improved. IV steroids DC'd. Prednisone 60 mg p.o. daily. Continue bronchodilators and other supportive measures. (3) Hypertensive urgency Is this a current diagnosis for this admission?: Yes Plan: Improved. Continue amlodipine and losartan. 01/05: Add hydrochlorothiazide. 01/08/2019-remains elevated at 160 systolic range. I have added metoprolol succinate 25 mg p.o. twice daily will start titrating other medications to effect. (4) Constipation Is this a current diagnosis for this admission?: Yes Plan: 01/08/2019-MiraLAX 17 g p.o. twice daily. - Time Time Spent with patient: 15-24 minutes - Inpatient Certification Based on my medical assessment, after consideration of the patient's comorbidities, presenting symptoms, or acuity I expect that the services needed warrant INPATIENT care.: Yes I certify that my determination is in accordance with my understanding of Medicare's requirements for reasonable and necessary INPATIENT services [42 CFR 412.3e].: Yes Medical Necessity: Other - Titrate blood pressure medications,
[2019-01-08] MEDS: METOPROLOL SUCCINATE 25 MG TAB.SR.24H PO SCH ×2 (10:16→22:22)
[2019-01-08] MEDS: LOSARTAN POTASSIUM 50 MG TABLET PO SCH (10:17)
[2019-01-08] MEDS: HYDROCHLOROTHIAZIDE 25 MG TABLET PO SCH (10:17)
[2019-01-08] MEDS: AMLODIPINE BESYLATE 10 MG TABLET PO SCH (10:18)
[2019-01-08] MEDS: PREDNISONE 20 MG TABLET PO SCH (10:18)
[2019-01-08] MEDS: POLYETHYLENE GLYCOL 3350 POWDER 17 GM/1 PACKET PO SCH ×2 (10:18→18:30)
[2019-01-08] MEDS: HEPARIN SOD (PORCINE) 5,000 UNIT/ML 1 ML VIAL SUBCUT SCH ×2 (10:18→22:22)
[2019-01-08] MEDS: CEFTRIAXONE 1 GM/D5W RTU 1 GM/50 ML RTUPB IV SCH (14:28)
[2019-01-08] MEDS: GUAIFENESIN SYRP 200 MG/10 ML UDC PO PRN (14:29)
[2019-01-08] MEDS ORDERED: OXYCODONE-ACETAMINOPHEN 5-325 MG TABLET PO PRN (14:29)
[2019-01-08] MEDS ORDERED: HYDROMORPHONE HCL INJ/PF 2 MG/ML AMPULE IV PRN (18:22)
[2019-01-08] MEDS: TRAZODONE HCL 50 MG TABLET PO SCH (22:22)
[2019-01-09 04:41] LABS: HEMATOCRIT 48.3 % (36.0-47.0); HEMOGLOBIN 16.1 g/dL (12.0-15.5); MEAN CORPUSCULAR HGB CONC 33.3 g/dL (32.0-36.0); MEAN CORPUSCULAR VOLUME 81 fl (80-97); PLATELET COUNT 248 10^3/uL (150-450); RED BLOOD COUNT 5.96 10^6/uL (3.72-5.28); RED CELL DISTRIBUTION WIDTH 14.3 % (11.5-14.0)
[2019-01-09 05:02] LABS: ANION GAP 7 (5-19); BLOOD UREA NITROGEN 27 mg/dL (7-20); CALCIUM 9.6 mg/dL (8.4-10.2); CARBON DIOXIDE 33 mmol/L (22-30); CHLORIDE 92 mmol/L (98-107); GLUCOSE 368 mg/dL (75-110); POTASSIUM 3.9 mmol/L (3.6-5.0)
[2019-01-09] MEDS: LEVALBUTEROL HCL NEB 1.25 MG/3 ML AMPUL NEB SCH (07:56)
--- NOTE | 2019-01-09 08:52 | PDOC DISCHARGE SUMMARY ---
Impression - Admit/DC Date/PCP Admission Date/Primary Care Provider: 01/06/19 11:43 Discharge Date: 01/09/19 - Discharge Diagnosis (1) Acute respiratory failure with hypoxia Is this a current diagnosis for this admission?: Yes (2) Asthma exacerbation Is this a current diagnosis for this admission?: Yes (3) Hypertensive urgency Is this a current diagnosis for this admission?: Yes (4) Constipation Is this a current diagnosis for this admission?: Yes - Additional Information Resuscitation Status: Do Not Resuscitate Discharge Activity: Activity As Tolerated Referrals: CHRISTIANO CHINO MD [ACTIVE STAFF] - 01/21/19 3:30 pm Prescriptions: Losartan Potassium [Cozaar 100 mg Tablet] 100 mg PO DAILY #30 tablet Prednisone [Deltasone 20 mg Tablet] 20 mg PO BID 5 Days #10 tablet Ipratropium/Albuterol Sulfate [Duoneb 3 ml Ampul] 3 ml NEB RTQ6HP PRN #30 vial.neb PRN Reason: Hydrochlorothiazide [Hydrodiuril 25 mg Tablet] 25 mg PO DAILY #30 tablet Amlodipine Besylate [Norvasc 10 mg Tablet] 10 mg PO DAILY #30 tablet Budesonide/Formoterol Fumarate [Symbicort Hfa 80-4.5 Mcg Inhaler 6.9 gm] 2 puff IH DAILY #1 inhaler Metoprolol Succinate [Toprol Xl 25 mg Tab.sr] 25 mg PO Q12 #60 tab.sr.24h Home Medications: Amlodipine Besylate [Norvasc 10 mg Tablet] 10 mg PO DAILY #30 tablet 01/07/19 Budesonide/Formoterol Fumarate [Symbicort Hfa 80-4.5 Mcg Inhaler 6.9 gm] 2 puff IH DAILY #1 inhaler 01/07/19 Hydrochlorothiazide [Hydrodiuril 25 mg Tablet] 25 mg PO DAILY #30 tablet 01/07/19 Ipratropium/Albuterol Sulfate [Duoneb 3 ml Ampul] 3 ml NEB RTQ6HP PRN #30 vial.neb 01/07/19 Losartan Potassium [Cozaar 100 mg Tablet] 100 mg PO DAILY #30 tablet 01/07/19 Prednisone [Deltasone 20 mg Tablet] 20 mg PO BID 5 Days #10 tablet 01/07/19 Metoprolol Succinate [Toprol Xl 25 mg Tab.sr] 25 mg PO Q12 #60 tab.sr.24h 01/09/19 History of Present Illiness History of Present Illness: DIETER HUNTER is a 63 year old female who presented to the ER on 01/03/2019 with a history of asthma that have been well controlled however states when her grand kids obtained a upper respiratory tract infection a few days ago she shared a water container with the grandkids at that time. Patient comes in with progressive shortness of breath since Monday with associated wheezing but no fevers or chills. Hospital Course Hospital Course: Patient admitted on 01/03/2019 after presenting to the ER with progressive shortness of breath and associated wheezing but denied fevers or chills. In the ER she was noted to have significant bilateral wheezing was found to be tachypneic. She was given breathing treatments IV steroids and did get some relief at that time. She says she does not have any chest pain but it is more of a chest discomfort as if water rising up in her chest. Patient was admitted placed on bronchodilators, IV steroids. Patient showed gradual improvement of her symptoms. Patient did have some constipation while in house and received MiraLAX with good results. At this time patient is improved sufficiently return home she will follow-up with her primary care practitioner in 1 week. Physical Exam Vital Signs: Temp Pulse Resp BP Pulse Ox 98.0 F 73 16 149/73 H 99 01/09/19 08:04 01/09/19 08:04 01/09/19 08:04 01/09/19 08:04 01/09/19 08:04 Intake & Output 01/08/19 01/09/19 01/10/19 06:59 06:59 06:59 Intake Total 650 1655 Output Total 2600 Balance -1950 1655 Weight 93.3 kg 91.1 kg General appearance: PRESENT: no acute distress, well-developed, well-nourished Head exam: PRESENT: atraumatic, normocephalic Eye exam: PRESENT: conjunctiva pink, EOMI, PERRLA. ABSENT: scleral icterus Ear exam: PRESENT: normal external ear exam Mouth exam: PRESENT: moist, tongue midline Neck exam: ABSENT: carotid bruit, JVD, lymphadenopathy, thyromegaly Respiratory exam: PRESENT: clear to auscultation lis. ABSENT: rales, rhonchi, wheezes Cardiovascular exam: PRESENT: RRR. ABSENT: diastolic murmur, rubs, systolic murmur Pulses: PRESENT: normal dorsalis pedis pul Vascular exam: PRESENT: normal capillary refill GI/Abdominal exam: PRESENT: normal bowel sounds, soft. ABSENT: distended, guarding, mass, organolmegaly, rebound, tenderness Rectal exam: PRESENT: deferred Extremities exam: PRESENT: full ROM. ABSENT: calf tenderness, clubbing, pedal edema Neurological exam: PRESENT: alert, awake, oriented to person, oriented to place, oriented to time, oriented to situation, CN II-XII grossly intact. ABSENT: motor sensory deficit Psychiatric exam: PRESENT: appropriate affect, normal mood. ABSENT: homicidal ideation, suicidal ideation Skin exam: PRESENT: dry, intact, warm. ABSENT: cyanosis, rash Results Laboratory Results: WBC 19.0 10^3/uL (4.0-10.5) H 01/09/19 04:15 RBC 5.96 10^6/uL (3.72-5.28) H 01/09/19 04:15 Hgb 16.1 g/dL (12.0-15.5) H 01/09/19 04:15 Hct 48.3 % (36.0-47.0) H 01/09/19 04:15 MCV 81 fl (80-97) 01/09/19 04:15 MCH 27.0 pg (27.0-33.4) 01/09/19 04:15 MCHC 33.3 g/dL (32.0-36.0) 01/09/19 04:15 RDW 14.3 % (11.5-14.0) H 01/09/19 04:15 Plt Count 248 10^3/uL (150-450) 01/09/19 04:15 Lymph % (Auto) 8.7 % (13-45) L 01/07/19 11:55 [place] % (Auto) 5.7 % (3-13) 01/07/19 11:55 Eos % (Auto) 0.0 % (0-6) 01/07/19 11:55 Baso % (Auto) 0.2 % (0-2) 01/07/19 11:55 Absolute Neuts (auto) 11.7 10^3/uL (1.7-8.2) H 01/07/19 11:55 Absolute Lymphs (auto) 1.2 10^3/uL (0.5-4.7) 01/07/19 11:55 Absolute Monos (auto) 0.8 10^3/uL (0.1-1.4) 01/07/19 11:55 Absolute Eos (auto) 0.0 10^3/uL (0.0-0.6) 01/07/19 11:55 Absolute Basos (auto) 0.0 10^3/uL (0.0-0.2) 01/07/19 11:55 Seg Neutrophils % 85.4 % (42-78) H 01/07/19 11:55 D-Dimer 0.61 ug/mL (0.00-0.50) H 01/03/19 18:46 Carbonic Acid 1.02 mmol/L (1.05-1.35) L 01/03/19 16:42 HCO3/H2CO3 Ratio 23:1 01/03/19 16:42 ABG pH 7.47 (7.35-7.45) H 01/03/19 16:42 ABG pCO2 33.8 mmHg (35-45) L 01/03/19 16:42 ABG pO2 60.5 mmHg (80-100) L 01/03/19 16:42 ABG HCO3 24.0 mmol/L (20-24) 01/03/19 16:42 ABG Total CO2 25.1 mmol/L (21-25) H 01/03/19 16:42 ABG O2 Saturation 92.8 % (94-98) L 01/03/19 16:42 ABG Base Excess 1.0 mmol/L 01/03/19 16:42 FiO2 ROOM AIR 01/03/19 16:42 Sodium 131.9 mmol/L (137-145) L 01/09/19 04:15 Potassium 3.9 mmol/L (3.6-5.0) 01/09/19 04:15 Chloride 92 mmol/L (98-107) L 01/09/19 04:15 Carbon Dioxide 33 mmol/L (22-30) H 01/09/19 04:15 Anion Gap 7 (5-19) 01/09/19 04:15 BUN 27 mg/dL (7-20) H 01/09/19 04:15 Creatinine 0.82 mg/dL (0.52-1.25) 01/09/19 04:15 Est GFR ( Amer) > 60 (>60) 01/09/19 04:15 Est GFR (MDRD) Non-Af > 60 (>60) 01/09/19 04:15 Glucose 368 mg/dL (75-110) H 01/09/19 04:15 Calcium 9.6 mg/dL (8.4-10.2) 01/09/19 04:15 Total Bilirubin 0.6 mg/dL (0.2-1.3) 01/03/19 08:30 Direct Bilirubin 0.1 mg/dL (0.0-0.4) 01/03/19 08:30 Neonat Total Bilirubin Not Reportable 01/03/19 08:30 Neonat Direct Bilirubin Not Reportable 01/03/19 08:30 Neonat Indirect Bili Not Reportable 01/03/19 08:30 AST 22 U/L (14-36) 01/03/19 08:30 ALT 16 U/L (<35) 01/03/19 08:30 Alkaline Phosphatase 100 U/L (38-126) 01/03/19 08:30 Creatine Kinase 198 U/L (30-135) H 01/03/19 08:30 CK-MB (CK-2) 1.50 ng/mL (<4.55) 01/03/19 08:30 Troponin I < 0.012 ng/mL 01/06/19 11:45 NT-Pro-B Natriuret Pep 122 pg/mL (5-900) 01/03/19 08:30 Total Protein 7.3 g/dL (6.3-8.2) 01/03/19 08:30 Albumin 4.4 g/dL (3.5-5.0) 01/03/19 08:30 01/03/19 01/06/19 08:30 11:45 CK-MB (CK-2) 1.50 Troponin I < 0.012 < 0.012 NT-Pro-B Natriuret Pep 122 Impressions: Chest X-Ray 01/03/19 08:16 IMPRESSION: NO ACUTE RADIOGRAPHIC FINDING IN THE CHEST. Chest X-Ray 01/04/19 00:00 IMPRESSION: NO ACUTE RADIOGRAPHIC FINDING IN THE CHEST. Lung Scan-VQ NM 01/04/19 12:52 IMPRESSION: HETEROGENOUS DISTRIBUTION ON VENTILATION IMAGES. NORMAL PERFUSION LUNG SCAN. NEGATIVE FOR PULMONARY EMBOLI. Plan Time Spent: Greater than 30 Minutes Stroke Is this a Stroke Patient?: No Acute Heart Failure - Is this a Heart Failure Patient?: No
[2019-01-09 09:01] VITALS: BP 155/68
[2019-01-09] MEDS: PREDNISONE 20 MG TABLET PO SCH (09:05)
[2019-01-09] MEDS: METOPROLOL SUCCINATE 25 MG TAB.SR.24H PO SCH (09:05)
[2019-01-09] MEDS: HYDROCHLOROTHIAZIDE 25 MG TABLET PO SCH (09:05)
[2019-01-09] MEDS: POLYETHYLENE GLYCOL 3350 POWDER 17 GM/1 PACKET PO SCH (09:06)
[2019-01-09] MEDS: HEPARIN SOD (PORCINE) 5,000 UNIT/ML 1 ML VIAL SUBCUT SCH (09:06)
[2019-01-09] MEDS: LOSARTAN POTASSIUM 50 MG TABLET PO SCH (09:06)
[2019-01-09] MEDS: AMLODIPINE BESYLATE 10 MG TABLET PO SCH (09:06)
== END 2019-01-09 11:43 | disposition home or self-care (01) | DRG 304 ==
LOC: ER 07:53 → INTOOBSV 13:10 → EH 13:10 → OBSVTOIN 13:10 → 3N 17:42 → OBSVTOIN 01-06 11:43
PROVIDERS: ADMIT Internal Medicine; ATTEND Internal Medicine
PROC: 5A09557 Assistance with Respiratory Ventilation, Greater than 96 Consecutive Hours, Continuous Positive Airway Pressure (ICD-10-PCS; principal; 2019-01-03)
PROC: 3E02340 Introduction of Influenza Vaccine into Muscle, Percutaneous Approach (ICD-10-PCS; 2019-01-09)
DX: I16.0 Hypertensive urgency (principal); J96.01 Acute respiratory failure with hypoxia; J45.51 Severe persistent asthma with (acute) exacerbation; K59.00 Constipation, unspecified; E11.9 Type 2 diabetes mellitus without complications; I10 Essential (primary) hypertension; Z23 Encounter for immunization; Z79.899 Other long term (current) drug therapy; Z88.6 Allergy status to analgesic agent; Z91.013 Allergy to seafood; Z82.49 Family history of ischemic heart disease and other diseases of the circulatory system
CPT/HCPCS: 36415; 71045; 71046; 78582; 80048; 80053; 82550; 82553; 82803; 83880; 84484; 85025; 85027; 85379; 87070; 87205; 90686; 93005; 93010; 94010; 94640; 94660; 96374; 99291; A9540; A9567; G0378; J0360; J0696; J1170; J1644; J2920; J2930; J3490; J7512; J7620; Q9969

== ENCOUNTER → 2019-03-12 | Outpatient (CLI) | payer MEDICARE ==
[2019-03-13 11:15] LABS: ALBUMIN 4.4 g/dL (3.5-5.0); ALKALINE PHOSPHATASE 112 U/L (38-126); ANION GAP 10 (5-19); ASPARTATE AMINO TRANSFERASE 28 U/L (14-36); BILIRUBIN,DIRECT 0.2 mg/dL (0.0-0.4); BILIRUBIN,TOTAL 1.2 mg/dL (0.2-1.3); BLOOD UREA NITROGEN 11 mg/dL (7-20); CALCIUM 10.3 mg/dL (8.4-10.2); CARBON DIOXIDE 31 mmol/L (22-30); CHLORIDE 98 mmol/L (98-107); CHOLESTEROL 271.86 mg/dL (0-200); GLUCOSE 243 mg/dL (75-110); TOTAL PROTEIN 7.8 g/dL (6.3-8.2); TRIGLYCERIDES 196 mg/dL (<150)
[2019-03-13 11:26] LABS: DIRECT LDL 200 mg/dL (<100)
[2019-03-13 11:29] LABS: VLDL CHOLESTEROL 39.2 mg/dL (10-31)
== END ==
LOC: OD 13:22
PROVIDERS: ATTEND Family Medicine
DX: E78.5 Hyperlipidemia, unspecified (principal); Z13.1 Encounter for screening for diabetes mellitus
CPT/HCPCS: 36415; 80053; 80061

== ENCOUNTER 2019-04-22 16:59 | Emergency (ER) | payer MEDICARE ==
--- NOTE | 2019-04-22 17:20 | EKG REPORT ---
SEVERITY:- BORDERLINE ECG - SINUS RHYTHM PROBABLE LEFT ATRIAL ABNORMALITY BORDERLINE T ABNORMALITIES, ANT-LAT LEADS : Confirmed by: Minna Pelayo MD 22-Apr-2019 17:19:41
--- NOTE | 2019-04-22 17:50 | ER Document Report ---
ED Medical Screen (RME) - General Chief Complaint: Blood Pressure Problem Stated Complaint: BLOOD PRESSURE ISSUE Time Seen by Provider: 04/22/19 17:46 Primary Care Provider: JENNIFER ARNOLD MD [Primary Care Provider] - Follow up as needed Mode of Arrival: Ambulatory Information source: Patient Notes: 63-year-old female patient presenting to the emergency department chief complaint of elevated blood pressure and chest pain. Patient reports chest pain started this morning around 1 AM when she woke up from her sleep. Patient reports pain has persisted through the day. She states it feels like a pressure. She states she had associated nausea earlier but that has since resolved. Denies any history of myocardial infarction. Exam: Heart sounds S1-S2 present, no ectopy noted, normal rate, normal rhythm. I have greeted and performed a rapid initial assessment of this patient. A comprehensive ED assessment and evaluation of the patient, analysis of test results and completion of the medical decision making process will be conducted by additional ED providers. I have specifically instructed the patient or family members with the patient to immediately return to any nursing staff should anything change in the patient's condition or with their chief complaint. TRAVEL OUTSIDE OF THE [place] IN LAST 30 DAYS: No - Related Data Allergies/Adverse Reactions: shellfish derived Allergy (Verified 04/22/19 17:46) Aspirin Allergy (Unknown, Uncoded 04/22/19 17:46) Past Medical History - Past Medical History Cardiac Medical History: Reports: Hx Hypertension Pulmonary Medical History: Reports: Hx Asthma Endocrine Medical History: Reports: Hx Diabetes Mellitus Type 2 Physical Exam - Vital signs Vitals: Temp Pulse Resp BP Pulse Ox 98.1 F 86 20 186/94 H 97 04/22/19 17:05 04/22/19 17:05 04/22/19 17:05 04/22/19 17:05 04/22/19 17:05 Course - Vital Signs Vital signs: Temp Pulse Resp BP Pulse Ox 98.1 F 86 20 186/94 H 97 04/22/19 17:05 04/22/19 17:05 04/22/19 17:05 04/22/19 17:05 04/22/19 17:05 Doctor's Discharge - Discharge Referrals: JENNIFER ARNOLD MD [Primary Care Provider] - Follow up as needed
--- NOTE | 2019-04-22 18:14 | RADIOLOGY REPORT (SQ) ---
EXAM DESCRIPTION: CHEST 2 VIEWS COMPLETED DATE/TIME: 04/22/2019 6:03 pm REASON FOR STUDY: chest pain COMPARISON: 01/04/2019. EXAM PARAMETERS: NUMBER OF VIEWS: two views TECHNIQUE: Digital Frontal and Lateral radiographic views of the chest acquired. RADIATION DOSE: NA LIMITATIONS: none FINDINGS: LUNGS AND PLEURA: No opacities, masses or pneumothorax. No pleural effusion. MEDIASTINUM AND HILAR STRUCTURES: No masses or contour abnormalities. HEART AND VASCULAR STRUCTURES: Heart normal size. No evidence for failure. BONES: No acute findings. HARDWARE: None in the chest. OTHER: No other significant finding. IMPRESSION: NO ACUTE RADIOGRAPHIC FINDING IN THE CHEST. TECHNICAL DOCUMENTATION: JOB ID: [id number] [employer]- All Rights Reserved Reading location - IP/workstation name: [email or web address]
[2019-04-22 18:36] LABS: ABSOLUTE BASOPHILS # (AUTO) 0.1 10^3/uL (0.0-0.2); ABSOLUTE EOSINOPHILS # (AUTO) 0.1 10^3/uL (0.0-0.6); ABSOLUTE LYMPHOCYTES (AUTO) 3.9 10^3/uL (0.5-4.7); ABSOLUTE MONOCYTES (AUTO) 0.6 10^3/uL (0.1-1.4); ABSOLUTE NEUT (AUTO) 6.7 10^3/uL (1.7-8.2); BASOPHILS % (AUTO) 1.2 % (0-2); EOSINOPHILS % (AUTO) 1.1 % (0-6); HEMATOCRIT 44.1 % (36.0-47.0); HEMOGLOBIN 14.7 g/dL (12.0-15.5); LYMPHOCYTES % (AUTO) 34.1 % (13-45); MEAN CORPUSCULAR HEMOGLOBIN 27.3 pg (27.0-33.4); MEAN CORPUSCULAR HGB CONC 33.4 g/dL (32.0-36.0); MEAN CORPUSCULAR VOLUME 82 fl (80-97); MONOCYTES % (AUTO) 5.1 % (3-13); PLATELET COUNT 277 10^3/uL (150-450); RED CELL DISTRIBUTION WIDTH 14.1 % (11.5-14.0); SEGMENTED NEUTROPHILS % (AUTO) 58.5 % (42-78); TOTAL CELLS COUNTED % (AUTO) 100 %; WHITE BLOOD COUNT 11.5 10^3/uL (4.0-10.5)
[2019-04-22 18:59] LABS: ALBUMIN 4.4 g/dL (3.5-5.0); ALKALINE PHOSPHATASE 102 U/L (38-126); ANION GAP 9 (5-19); ASPARTATE AMINO TRANSFERASE 23 U/L (14-36); BILIRUBIN,DIRECT 0.2 mg/dL (0.0-0.4); BILIRUBIN,TOTAL 0.8 mg/dL (0.2-1.3); BLOOD UREA NITROGEN 6 mg/dL (7-20); CARBON DIOXIDE 31 mmol/L (22-30); CHLORIDE 99 mmol/L (98-107); GLUCOSE 186 mg/dL (75-110); POTASSIUM 3.7 mmol/L (3.6-5.0); TOTAL PROTEIN 7.7 g/dL (6.3-8.2)
--- NOTE | 2019-04-22 20:51 | ER Document Report ---
ED Blood Pressure Problem - General Chief Complaint: Chest Pressure Stated Complaint: BLOOD PRESSURE ISSUE Time Seen by Provider: 04/22/19 17:46 Primary Care Provider: JENNIFER ARNOLD MD [Primary Care Provider] - Follow up as needed Mode of Arrival: Ambulatory Information source: Patient Notes: 63-year-old black female patient with chief complaint of elevated blood pressure today. Patient reports that she just did not feel right and noted this morning when she got out of that she had redness in her left eye. And she felt tingly in her right hand. Patient decided that she would not take her blood pressure medicines today and decided to come to the emergency department for further evaluation. Patient reports that 6 months ago she was discontinued off her her carvedilol. Patient reports she saw her primary care doctor recently and was and noted that her blood pressure was elevated and was going to put her on a new medication in place of the carvedilol that was discontinued 6 months ago. Dialyzed patient denies any use of substance abuse alcohol. Patient has no significant headache history. Patient reports that she continues to take amlodipine and hydrochlorothiazide. However she did not take any medications today. TRAVEL OUTSIDE OF THE [place] IN LAST 30 DAYS: No - Related Data Allergies/Adverse Reactions: shellfish derived Allergy (Verified 04/22/19 17:46) Aspirin Allergy (Unknown, Uncoded 04/22/19 17:46) Past Medical History - General Information source: Patient - Social History Smoking Status: Former Smoker Frequency of alcohol use: None Drug Abuse: None Occupation: Disabled due to back pain Lives with: Alone Family History: None, Other - Cancer and many siblings. Patient has suicidal ideation: No Patient has homicidal ideation: No - Medical History Medical History: Negative - Past Medical History Cardiac Medical History: Reports: Hx Hypertension Pulmonary Medical History: Reports: Hx Asthma EENT Medical History: Reports: None Neurological Medical History: Reports: None Endocrine Medical History: Reports: Hx Diabetes Mellitus Type 2 Renal/ Medical History: Reports: None Malignancy Medical History: Reports: None GI Medical History: Reports: None Musculoskeletal Medical History: Reports Other - Chronic back pain Skin Medical History: Reports None Psychiatric Medical History: Reports: None Traumatic Medical History: Reports: None Infectious Medical History: Reports: None - Immunizations Immunizations up to date: Yes Review of Systems - Review of Systems Constitutional: Malaise EENT: Other - Left eye redness Cardiovascular: No symptoms reported, Other - Hypertension Respiratory: Other - Asthma Gastrointestinal: No symptoms reported Genitourinary: No symptoms reported Female Genitourinary: No symptoms reported Musculoskeletal: Other - Chronic back pain Skin: No symptoms reported Hematologic/Lymphatic: No symptoms reported Neurological/Psychological: Headaches - Headache facial pain noted in the sinuses on the left side frontal and maxillary Physical Exam - Vital signs Vitals: Temp Pulse Resp BP Pulse Ox 98.1 F 86 20 186/94 H 97 04/22/19 17:05 04/22/19 17:05 04/22/19 17:05 04/22/19 17:05 04/22/19 17:05 Interpretation: Normal - General General appearance: Appears well, Alert, Other - Obese - HEENT Head: Normocephalic, Atraumatic Eyes: Normal Conjunctiva: Injected, Other - Left conjunctiva injected. No drainage noted no ulcer noted minimal swelling of lower lid Extraocular movements intact: Yes Pupils: PERRL Corrective lenses worn: No Anterior chamber: Normal Fundascopic: Normal Nerve palsy: Yes Visual rolle normal: Yes - Respiratory Respiratory status: No respiratory distress Chest status: Nontender Breath sounds: Normal Chest palpation: Normal - Cardiovascular Rhythm: Regular Heart sounds: Normal auscultation Murmur: No - Abdominal Inspection: Normal Distension: No distension Bowel sounds: Normal Tenderness: Nontender Organomegaly: No organomegaly - Back Back: Normal, Nontender - Extremities General upper extremity: Normal inspection, Nontender, Normal color, Normal ROM, Normal temperature General lower extremity: Normal inspection, Nontender, Normal color, Normal ROM, Normal temperature, Normal weight bearing. No: Shady's sign - Neurological Neuro grossly intact: Yes Cognition: Normal Orientation: AAOx4 Henderson Coma Scale Eye Opening: Spontaneous Leonidas Coma Scale Verbal: Oriented Henderson Coma Scale Motor: Obeys Commands Henderson Coma Scale Total: 15 Speech: Normal Motor strength normal: LUE, RUE, LLE, RLE Sensory: Normal - Psychological Associated symptoms: Normal affect, Normal mood - Skin Skin Temperature: Warm Skin Moisture: Dry Skin Color: Normal Course - Re-evaluation Re-evalutation: 04/22/19 23:37 Repeat blood pressure 142/77. Patient is resting comfortably in no distress blood pressure has improved with medications. Prepare for discharge home with prescription for eyedrops and for conjunctivitis and clonidine for blood pressure control. - Vital Signs Vital signs: Temp Pulse Resp BP Pulse Ox 98.5 F 86 19 167/51 H 98 04/22/19 20:45 04/22/19 17:05 04/22/19 22:02 04/22/19 22:02 04/22/19 22:02 - Laboratory Result Diagrams: 04/22/19 18:16 04/22/19 18:16 Laboratory results interpreted by me: 04/22/19 04/22/19 18:16 18:16 WBC 11.5 H RBC 5.40 H RDW 14.1 H Carbon Dioxide 31 H BUN 6 L Glucose 186 H - Diagnostic Test Radiology reviewed: Image reviewed, Reports reviewed Radiology results interpreted by me: 04/22/19 21:26 Chest x-ray normal without any acute process no infiltrates no acute cardiopulmonary disease noted on x-ray. - EKG Interpretation by Me EKG shows normal: Sinus rhythm Rate: Normal Rhythm: NSR P Waves: LAE Additional EKG results interpreted by me: 04/22/19 22:00 12-lead EKG time 8:00 AM sinus rhythm probable left atrial abnormality probable left ventricular hypertrophy. No other acute ST-T wave changes. Discharge - Discharge Clinical Impression: Conjunctivitis due to adenovirus, left eye Hypertension Qualifiers: Hypertension type: essential hypertension Qualified Code(s): I10 - Essential (primary) hypertension Condition: Stable Disposition: HOME, SELF-CARE Additional Instructions: Conjunctivitis You have an infection in your eye, commonly known as "pink eye." Conjunctivitis causes redness, mild discomfort, itching, and mattering on the eyelids. It is very contagious, so you must be careful to wash your hands after touching your face so you don't pass the infection on to others. Conjunctivitis is caused by both viruses and bacteria. It usually responds quickly to treatment with antibiotic drops. These should be placed in the eye as prescribed (usually every three to four hours while you're awake). If you wear contact lenses, don't put them in your eyes until the infection is cleared and you are no longer using the drops (unless your doctor advises you otherwise). Should you develop increasing eye pain, severe swelling, decreased vision, or fail to improve as expected, please return for re-examination. Prescriptions: Clonidine HCl [Catapres 0.1 mg Tablet] 0.1 mg PO Q12 #60 tablet Tobramycin Sulfate/Dexameth [Tobradex Oph Drops 2.5 Ml Bottle] 2 drop BTH_EYE QID 5 Days #5 ml Forms: Elevated Blood Pressure Referrals: JENNIFER ARNOLD MD [Primary Care Provider] - Follow up as needed
[2019-04-22] MEDS ORDERED: CLONIDINE HCL 0.2 MG TABLET PO ONE (21:09)
[2019-04-22] MEDS ORDERED: AMLODIPINE BESYLATE 5 MG TABLET PO ONE (21:12)
[2019-04-22] MEDS ORDERED: HYDROCHLOROTHIAZIDE 12.5 MG TABLET PO ONE (21:13)
[2019-04-22] MEDS ORDERED: ONDANSETRON 4 MG TAB.RAPDIS PO ONE (22:05)
[2019-04-23 00:03] VITALS: BP 124/68
== END 2019-04-23 00:03 | disposition home or self-care (01) ==
LOC: ER 16:59
DX: B30.1 Conjunctivitis due to adenovirus (principal); I10 Essential (primary) hypertension; R07.9 Chest pain, unspecified; H57.12 Ocular pain, left eye; R51 Headache; M54.9 Dorsalgia, unspecified; G89.29 Other chronic pain; Z79.899 Other long term (current) drug therapy; Z87.891 Personal history of nicotine dependence; J45.909 Unspecified asthma, uncomplicated; E11.9 Type 2 diabetes mellitus without complications
CPT/HCPCS: 93005; 99284; 36415; 85025; 80053; 84484; 71046; 93010; A9270 ×4; S0119

== ENCOUNTER 2019-07-02 14:11 | Emergency (ER) | payer MEDICARE ==
--- NOTE | 2019-07-02 14:27 | ER Document Report ---
ED Medical Screen (RME) - General Chief Complaint: Chest Pain Stated Complaint: CHEST PAIN Time Seen by Provider: 07/02/19 14:22 Primary Care Provider: JENNIFER ARNOLD MD [Primary Care Provider] - Follow up as needed Notes: Patient presents complaining of left-sided chest pain for the past 3 days. Patient reports mild cough and occasional lightheadedness. Patient denies any fever, nausea or vomiting. Patient does have a history of hypertension and borderline diabetes. I have greeted and performed a rapid initial assessment of this patient. A comprehensive ED assessment and evaluation of the patient, analysis of test results and completion of the medical decision making process will be conducted by additional ED providers. TRAVEL OUTSIDE OF THE [place] IN LAST 30 DAYS: No - Related Data Allergies/Adverse Reactions: shellfish derived Allergy (Verified 07/02/19 14:22) tomato Allergy (Verified 07/02/19 14:22) Aspirin Allergy (Unknown, Uncoded 04/22/19 17:46) Past Medical History - Past Medical History Cardiac Medical History: Reports: Hx Hypertension Pulmonary Medical History: Reports: Hx Asthma Endocrine Medical History: Reports: Hx Diabetes Mellitus Type 2 - Immunizations Immunizations up to date: Yes Physical Exam - Vital signs Vitals: Temp Pulse Resp BP Pulse Ox 98.2 F 85 16 156/68 H 96 07/02/19 14:20 07/02/19 14:20 07/02/19 14:20 07/02/19 14:20 07/02/19 14:20 - Respiratory Respiratory status: No respiratory distress Chest status: Tender Breath sounds: Normal Chest palpation: Tender - Cardiovascular Rhythm: Regular Heart sounds: S1 appreciated, S2 appreciated Course - Vital Signs Vital signs: Temp Pulse Resp BP Pulse Ox 98.2 F 85 16 156/68 H 96 07/02/19 14:20 07/02/19 14:20 07/02/19 14:20 07/02/19 14:20 07/02/19 14:20 Doctor's Discharge - Discharge Referrals: JENNIFER ARNOLD MD [Primary Care Provider] - Follow up as needed
--- NOTE | 2019-07-02 14:53 | RADIOLOGY REPORT (SQ) ---
EXAM DESCRIPTION: CHEST 2 VIEWS COMPLETED DATE/TIME: 07/02/2019 2:42 pm REASON FOR STUDY: cp COMPARISON: 04/22/2019 EXAM PARAMETERS: NUMBER OF VIEWS: two views TECHNIQUE: Digital Frontal and Lateral radiographic views of the chest acquired. RADIATION DOSE: NA LIMITATIONS: none FINDINGS: LUNGS AND PLEURA: No opacities, masses or pneumothorax. No pleural effusion. MEDIASTINUM AND HILAR STRUCTURES: No masses or contour abnormalities. HEART AND VASCULAR STRUCTURES: Heart normal size. No evidence for failure. BONES: No acute findings. HARDWARE: None in the chest. OTHER: No other significant finding. IMPRESSION: NO ACUTE RADIOGRAPHIC FINDING IN THE CHEST. TECHNICAL DOCUMENTATION: JOB ID: [id number] 2010 [employer]- All Rights Reserved Reading location - IP/workstation name: [email or web address]
[2019-07-02 15:12] LABS: ABSOLUTE EOSINOPHILS # (AUTO) 0.2 10^3/uL (0.0-0.6); ABSOLUTE LYMPHOCYTES (AUTO) 3.6 10^3/uL (0.5-4.7); ABSOLUTE MONOCYTES (AUTO) 0.5 10^3/uL (0.1-1.4); ABSOLUTE NEUT (AUTO) 5.5 10^3/uL (1.7-8.2); BASOPHILS % (AUTO) 0.3 % (0-2); EOSINOPHILS % (AUTO) 1.7 % (0-6); HEMATOCRIT 46.5 % (36.0-47.0); HEMOGLOBIN 15.8 g/dL (12.0-15.5); LYMPHOCYTES % (AUTO) 36.4 % (13-45); MEAN CORPUSCULAR HEMOGLOBIN 27.5 pg (27.0-33.4); MEAN CORPUSCULAR VOLUME 81 fl (80-97); MONOCYTES % (AUTO) 5.3 % (3-13); PLATELET COUNT 247 10^3/uL (150-450); RED BLOOD COUNT 5.75 10^6/uL (3.72-5.28); RED CELL DISTRIBUTION WIDTH 14.6 % (11.5-14.0); SEGMENTED NEUTROPHILS % (AUTO) 56.3 % (42-78); TOTAL CELLS COUNTED % (AUTO) 100 %; WHITE BLOOD COUNT 9.8 10^3/uL (4.0-10.5)
--- NOTE | 2019-07-02 15:12 | ER Document Report ---
ED General - General Chief Complaint: Breast Problem Stated Complaint: CHEST PAIN Time Seen by Provider: 07/02/19 14:22 Primary Care Provider: JENNIFER ARNOLD MD [Primary Care Provider] - Follow up as needed Mode of Arrival: Ambulatory Information source: Patient Notes: 63-year-old female presented to ED for complaint of TRAVEL OUTSIDE OF THE [place] IN LAST 30 DAYS: No - HPI Onset: Other Onset/Duration: Gradual - 2 days Quality of pain: Sharp, Throbbing Severity: Moderate Pain Level: 4 Associated symptoms: Other - Pain to the entire left breast. She states she was sent by her doctor over here to ensure that she did not have another abscess in this breast. She states she did have an abscess I indeed and they are afraid this is an infection. Exacerbated by: Movement Relieved by: Denies Similar symptoms previously: Yes Recently seen / treated by doctor: Yes - Related Data Allergies/Adverse Reactions: shellfish derived Allergy (Verified 07/02/19 14:22) tomato Allergy (Verified 07/02/19 14:22) Aspirin Allergy (Severe, Uncoded 07/02/19 14:28) Past Medical History - General Information source: Patient - Social History Smoking Status: Former Smoker Frequency of alcohol use: Rare Drug Abuse: None Lives with: Family Family History: None, Other - Cancer and many siblings. Patient has suicidal ideation: No Patient has homicidal ideation: No - Past Medical History Cardiac Medical History: Reports: Hx Hypertension Pulmonary Medical History: Reports: Hx Asthma EENT Medical History: Reports: None Neurological Medical History: Reports: None Endocrine Medical History: Reports: Hx Diabetes Mellitus Type 2 - Not taking medications Renal/ Medical History: Reports: None Malignancy Medical History: Reports: None GI Medical History: Reports: None Musculoskeletal Medical History: Reports None Skin Medical History: Reports None Psychiatric Medical History: Reports: None Traumatic Medical History: Reports: None Infectious Medical History: Reports: None Surgical Hx: Negative Past Surgical History: Reports: None - Immunizations Immunizations up to date: Yes Review of Systems - Review of Systems Constitutional: No symptoms reported EENT: No symptoms reported Cardiovascular: No symptoms reported Respiratory: Cough Gastrointestinal: No symptoms reported Genitourinary: No symptoms reported Female Genitourinary: No symptoms reported Musculoskeletal: No symptoms reported Skin: Other - Entire left breast tender. She does have a scar with a small opening from a previous abscess to this breast. No drainage noted at this time Hematologic/Lymphatic: No symptoms reported Neurological/Psychological: No symptoms reported -: Yes All other systems reviewed and negative Physical Exam - Vital signs Vitals: Temp Pulse Resp BP Pulse Ox 98.2 F 85 16 156/68 H 96 07/02/19 14:20 07/02/19 14:20 07/02/19 14:20 07/02/19 14:20 07/02/19 14:20 Interpretation: Normal - General General appearance: Appears well, Alert - HEENT Head: Normocephalic, Atraumatic Eyes: Normal Pupils: PERRL Ears: Normal External canal: Normal Tympanic membrane: Normal Sinus: Normal Nasal: Normal Mouth/Lips: Normal Mucous membranes: Normal Pharynx: Normal Neck: Normal - Respiratory Respiratory status: No respiratory distress Chest status: Nontender Breath sounds: Normal Chest palpation: Normal - Cardiovascular Rhythm: Regular Heart sounds: Normal auscultation Murmur: No - Abdominal Inspection: Normal Distension: No distension Bowel sounds: Normal Tenderness: Nontender Organomegaly: No organomegaly - Back Back: Normal, Nontender - Extremities General upper extremity: Normal inspection, Nontender, Normal color, Normal ROM, Normal temperature General lower extremity: Normal inspection, Nontender, Normal color, Normal ROM, Normal temperature, Normal weight bearing. No: Shady's sign - Neurological Neuro grossly intact: Yes Cognition: Normal Orientation: AAOx4 Hooker Coma Scale Eye Opening: Spontaneous Hooker Coma Scale Verbal: Oriented Hooker Coma Scale Motor: Obeys Commands Leonidas Coma Scale Total: 15 Speech: Normal Motor strength normal: LUE, RUE, LLE, RLE Sensory: Normal - Psychological Associated symptoms: Normal affect, Normal mood - Skin Skin Temperature: Warm Skin Moisture: Dry Skin Color: Normal Skin irregularity: Abscess - Old healing abscess to the left medial breast. Patient complains of tenderness to the entire breast Location of irregularity: Other - Left breast Irregularity with: Tenderness Course - Re-evaluation Re-evalutation: 07/02/19 19:08 Discussed labs x-ray and ultrasound with patient. Written report of labs ultrasound and x-ray given to patient. There was no abscess in the breast. Patient was not complaining of chest pain but of left breast pain. Patient was started back on her metformin. She states she had not taken any metformin in about 3 years even though she told her doctor she was on metformin. She was given a liter of fluids to increase prove her electrolytes. Patient states she would increase her fluid intake take her Metformin and eat properly and she does have an appointment with her primary doctor for . - Vital Signs Vital signs: Temp Pulse Resp BP Pulse Ox 98.6 F 85 17 155/73 H 99 07/02/19 18:45 07/02/19 14:20 07/02/19 18:45 07/02/19 18:45 07/02/19 18:45 - Laboratory Result Diagrams: 07/02/19 14:55 07/02/19 14:55 Laboratory results interpreted by me: 07/02/19 07/02/19 07/02/19 14:55 14:55 17:14 RBC 5.75 H Hgb 15.8 H RDW 14.6 H Sodium 134.3 L Chloride 95 L Carbon Dioxide 31 H Glucose 350 H POC Glucose 221 H - Diagnostic Test Radiology reviewed: Image reviewed, Reports reviewed Discharge - Discharge Clinical Impression: Breast pain, left Condition: Stable Disposition: HOME, SELF-CARE Additional Instructions: You were seen today for pain in your left breast. Your ultrasound did not show an abscess to the breast. HYPERGLYCEMIA (HIGH BLOOD SUGAR): You have an abnormally high blood sugar. Not all high blood sugar requires long-term treatment. High blood sugar can be due to medications, , or the stress of illness. (These cases are "borderline diabetes.") If the doctor feels your high blood sugar might resolve with time, you may not require treatment now. It's very important that you follow through, to see if the blood sugar returns to normal levels. Uncontrolled high blood sugar leads to early heart disease, strokes, nerve damage, eye damage, and kidney damage. Call the physician if there is faintness, excess sleepiness, or very rapid breathing. DIABETES: You have an abnormally high blood sugar, suspicious for diabetes. Not all high blood sugar requires long-term treatment. High blood sugar can be due to medications, , or the stress of illness. (These cases are "borderline diabetes.") If the doctor feels your high blood sugar might get better with time, you may not require treatment now. It's very important that you follow through. Uncontrolled high blood sugar leads to early heart disease, strokes, nerve damage, eye damage, and kidney damage. All diabetics should follow a diet designed to control the blood sugar. Overweight diabetics should exercise regularly and lose weight. If this is not sufficient to control the blood sugar, pills or insulin shots are necessary. Younger people who develop diabetes almost always require insulin daily. Home testing of blood sugars or urine sugar is required. Diabetic teaching is available to help you figure insulin doses and monitor the blood sugar. Call the physician if there is faintness, excess sleepiness, or very rapid breathing. If hypoglycemia (LOW blood sugar) develops, symptoms are shakiness, weakness, sweating, and confusion. In this case, you should eat or drink something with sugar at once. Glucophage (Metformin hydrochloride) Glucophage is used to treat diabetes. It helps insulin move sugar from your blood stream into your cells. It also slows production of new blood sugar. Glucophage can be combined with another type of diabetes pill or with insulin injections. Glucophage should NOT be used by patients, true insulin-dependent (juvenile) diabetics, or those prone to acidosis (severe kidney disease, alcoholism, severe heart failure). You MUST NOT receive iodine-containing x-ray dye while taking Glucophage. The medicine must be stopped 2 days before the test. Be certain your doctor is aware you are taking Glucophage before undergoing IVP, angiograms, or other x- rays that require IV injection of dye. Glucophage commonly causes decreased appetite. Some patients may have nausea, vomiting, or diarrhea. If the side effects are severe, call your doctor. Glucophage will not cause hypoglycemia (low blood sugar) when used alone. Some patients using diabetes pills or insulin may experience symptoms of hypoglycemia (flushing, sweats, racing heart, lightheadedness). Eat or drink something sweet. Contact your doctor for further instructions. You may need to reduce the dose of insulin or of the other diabetes pill. FOLLOW-UP CARE: If you have been referred to a physician for follow-up care, call the physicians office for an appointment as you were instructed or within the next two days. If you experience worsening or a significant change in your symptoms, notify the physician immediately or return to the Emergency Department at any time for re-evaluation. Be sure to keep your appointment with your primary doctor and discuss your diet and your medications. Prescriptions: Metformin HCl [Glucophage 500 mg Tablet] 500 mg PO BID #60 tablet Referrals: JENNIFER ARNOLD MD [Primary Care Provider] - Follow up as needed
[2019-07-02 15:34] LABS: ALBUMIN 4.3 g/dL (3.5-5.0); ALKALINE PHOSPHATASE 100 U/L (38-126); ANION GAP 8 (5-19); ASPARTATE AMINO TRANSFERASE 24 U/L (14-36); BILIRUBIN,DIRECT 0.2 mg/dL (0.0-0.4); BILIRUBIN,TOTAL 0.6 mg/dL (0.2-1.3); BLOOD UREA NITROGEN 10 mg/dL (7-20); CALCIUM 9.9 mg/dL (8.4-10.2); CARBON DIOXIDE 31 mmol/L (22-30); CHLORIDE 95 mmol/L (98-107); GLUCOSE 350 mg/dL (75-110); POTASSIUM 3.9 mmol/L (3.6-5.0); TOTAL PROTEIN 7.5 g/dL (6.3-8.2)
[2019-07-02] MEDS ORDERED: NORMAL SALINE 1000 ML 1,000 ML IV ONE (15:43)
[2019-07-02 16:09] LABS: VENOUS BLOOD BASE EXCESS 5.2 mmol/L; VENOUS BLOOD HCO3 31.1 mmol/L (20-32); VENOUS BLOOD PCO2 49.7 mmHg (35-63); VENOUS BLOOD PH 7.41 (7.30-7.42)
--- NOTE | 2019-07-02 16:38 | RADIOLOGY REPORT (SQ) ---
EXAM DESCRIPTION: U/S BREAST UNILATERAL LIMITED COMPLETED DATE/TIME: 07/02/2019 3:42 pm REASON FOR STUDY: left breast pain hx abscess COMPARISON: None TECHNIQUE: Static and Realtime grayscale interrogation of focal area(s) of concern in the left breas t(s) acquired. Selected color doppler/spectral images saved to PACS. LIMITATIONS: None. FINDINGS: Masses:No cystic or solid masses identified Architecture:No alteration of normal morphology. No skin thickening. No edema. Other: None. IMPRESSION: No evidence of abscess or other fluid collection. BIRAD: 1 Negative. RECOMMENDATION: RECOMMENDED FOLLOW-UP: Follow-up as clinically indicated. COMMENT: The [employer] ([employer]) has developed recommendations for screening MRI of the breasts in certain patient populations, to be used in conjunction with mammography. Breast MRI s urveillance may be appropriate for women with more than 20% lifetime risk of developing breast cancer as determined by genetic testing, significant family history of the disease, or history of mantle r adiation for Hodgkins Disease. ACR Practice Guidelines 2008. TECHNICAL DOCUMENTATION: FINDING NUMBER: (1) ASSESSMENT: (1) JOB ID: [id number] 2010 [employer]- All Rights Reserved Reading location - IP/workstation name: [email or web address]
[2019-07-02 18:50] VITALS: BP 155/73
[2019-07-02] MEDS ORDERED: METFORMIN HCL 500 MG TABLET PO ONE (18:51)
--- NOTE | 2019-07-02 19:03 | EKG REPORT ---
SEVERITY:- ABNORMAL ECG - SINUS RHYTHM PROBABLE LEFT ATRIAL ABNORMALITY PROBABLE LEFT VENTRICULAR HYPERTROPHY NONSPECIFIC ST-T CHANGES , DIFFUSE : Confirmed by: Antonio Goodwin MD 02-Jul-2019 19:03:11
== END 2019-07-02 19:07 | disposition home or self-care (01) ==
LOC: ER 14:11
DX: N64.4 Mastodynia (principal); R07.9 Chest pain, unspecified; R05 Cough; R42 Dizziness and giddiness; I10 Essential (primary) hypertension; E11.9 Type 2 diabetes mellitus without complications
CPT/HCPCS: 93005; 99285; 96360; 36415; 82962; 83735; 85025; 80053; 84484; 82803; 71046; 76642; 93010; A9270; J7030

== ENCOUNTER → 2019-10-10 | Outpatient (CLI) | payer MEDICARE | LOC: WI 13:27 | PROVIDERS: ATTEND Family Medicine | DX: Z12.31 Encounter for screening mammogram for malignant neoplasm of breast (principal) | CPT/HCPCS: 77063; 77067 ==

== ENCOUNTER 2019-12-02 13:29 | Emergency (ER) | payer MEDICARE ==
[2019-12-02 15:23] LABS: ABSOLUTE BASOPHILS # (AUTO) 0.1 10^3/uL (0.0-0.2); ABSOLUTE EOSINOPHILS # (AUTO) 0.2 10^3/uL (0.0-0.6); ABSOLUTE MONOCYTES (AUTO) 0.7 10^3/uL (0.1-1.4); HEMOGLOBIN 16.1 g/dL (12.0-15.5); TOTAL CELLS COUNTED % (AUTO) 100 %
--- NOTE | 2019-12-02 15:30 | RADIOLOGY REPORT (SQ) ---
EXAM DESCRIPTION: CHEST SINGLE VIEW IMAGES COMPLETED DATE/TIME: 12/02/2019 3:16 pm REASON FOR STUDY: sob COMPARISON: 07/02/2019 EXAM PARAMETERS: NUMBER OF VIEWS: One view. TECHNIQUE: Single frontal radiographic view of the chest acquired. RADIATION DOSE: NA LIMITATIONS: None. FINDINGS: LUNGS AND PLEURA: Ill-defined lingular opacity with blunting of the costophrenic angle. MEDIASTINUM AND HILAR STRUCTURES: No masses. Contour normal. HEART AND VASCULAR STRUCTURES: Heart normal in size. Normal vasculature. BONES: No acute findings. HARDWARE: None in the chest. OTHER: No other significant finding. IMPRESSION: Ill-defined lingular opacity possibly atelectasis or airspace disease. TECHNICAL DOCUMENTATION: JOB ID: [id number] 2010 [employer]- All Rights Reserved Reading location - IP/workstation name: [email or web address]
[2019-12-02 15:33] LABS: BASOPHILS % (AUTO) 0.9 % (0-2); EOSINOPHILS % (AUTO) 2.4 % (0-6); HEMATOCRIT 47.5 % (36.0-47.0); LYMPHOCYTES % (AUTO) 29.9 % (13-45); MEAN CORPUSCULAR HEMOGLOBIN 27.3 pg (27.0-33.4); MEAN CORPUSCULAR HGB CONC 33.8 g/dL (32.0-36.0); MEAN CORPUSCULAR VOLUME 81 fl (80-97); MONOCYTES % (AUTO) 6.6 % (3-13); PLATELET COUNT 268 10^3/uL (150-450); RED BLOOD COUNT 5.88 10^6/uL (3.72-5.28); RED CELL DISTRIBUTION WIDTH 13.7 % (11.5-14.0); SEGMENTED NEUTROPHILS % (AUTO) 60.2 % (42-78)
[2019-12-02 15:45] LABS: ALBUMIN 4.5 g/dL (3.5-5.0); ALKALINE PHOSPHATASE 110 U/L (38-126); ANION GAP 10 (5-19); ASPARTATE AMINO TRANSFERASE 21 U/L (14-36); BILIRUBIN,DIRECT 0.3 mg/dL (0.0-0.4); BILIRUBIN,TOTAL 1.1 mg/dL (0.2-1.3); BLOOD UREA NITROGEN 14 mg/dL (7-20); CALCIUM 10.1 mg/dL (8.4-10.2); CARBON DIOXIDE 27 mmol/L (22-30); CHLORIDE 100 mmol/L (98-107); CREATINE KINASE 90 U/L (30-135); GLUCOSE 265 mg/dL (75-110); POTASSIUM 3.9 mmol/L (3.6-5.0); TOTAL PROTEIN 7.4 g/dL (6.3-8.2)
[2019-12-02 15:56] LABS: CREATINE KINASE MB 0.76 ng/mL (<4.55)
[2019-12-02 15:59] LABS: TROPONIN I < 0.012 ng/mL
[2019-12-02] MEDS ORDERED: ACETAMINOPHEN 325 MG TABLET PO ONE (17:24)
[2019-12-02 17:26] LABS: APPEARANCE,URINE CLEAR; BILIRUBIN,URINE NEGATIVE (NEGATIVE); COLOR,URINE STRAW; GLUCOSE, URINE 150 mg/dL (NEGATIVE); KETONES,URINE NEGATIVE (NEGATIVE); LEUKOCYTE ESTERASE,URINE NEGATIVE (NEGATIVE); NITRITE,URINE NEGATIVE (NEGATIVE); PROTEIN,URINE NEGATIVE (NEGATIVE); URINE SPECIFIC GRAVITY 1.009; UROBILINOGEN,URINE NEGATIVE mg/dL (<2.0)
--- NOTE | 2019-12-02 17:47 | ER Document Report ---
ED General - General Chief Complaint: Shortness Of Breath Stated Complaint: SHORTNESS OF BREATH/BLOOD PRESSURE PROBLEMS Primary Care Provider: JENNIFER ARNOLD MD [Primary Care Provider] - Follow up as needed Notes: 64-year-old female with past medical history of hypertension, asthma, diabetes, history of acute hypoxic respiratory failure presenting today with cough since Monday. States when she coughs she has this chest pain. Is coughing up a white sputum. Her chest pain is only when she is coughing. She states she is nauseated occasionally. No abdominal pain. She is wanting to go get COVID testing and while she was there became lightheaded and diaphoretic. Denies any history of heart attack or strokes. She denies any history of hyperlipidemia. Denies any history of COPD and CHF. Heart rate is in the 90s, O2 saturation is 99% to 100% on room air. Says she becomes short of breath when she is walking. TRAVEL OUTSIDE OF THE [place] IN LAST 30 DAYS: No - Related Data Allergies/Adverse Reactions: shellfish derived Allergy (Verified 12/02/19 15:09) tomato Allergy (Verified 12/02/19 15:09) Aspirin Allergy (Severe, Uncoded 12/02/19 15:09) Past Medical History - Social History Smoking Status: Never Smoker Chew tobacco use (# tins/day): No Frequency of alcohol use: None Drug Abuse: None Family History: None, Other - Past Medical History Cardiac Medical History: Reports: Hx Hypercholesterolemia, Hx Hypertension Pulmonary Medical History: Reports: Hx Asthma Endocrine Medical History: Reports: Hx Diabetes Mellitus Type 2 - Not taking medications Past Surgical History: Reports: Hx Breast Surgery - L cyst removed, Hx Hysterectomy - partial, Hx Orthopedic Surgery - bone spurs removed - Immunizations Immunizations up to date: Yes Review of Systems - Review of Systems Constitutional: See HPI EENT: No symptoms reported Cardiovascular: See HPI Respiratory: See HPI Gastrointestinal: No symptoms reported Genitourinary: No symptoms reported Female Genitourinary: No symptoms reported Musculoskeletal: No symptoms reported Skin: No symptoms reported Hematologic/Lymphatic: No symptoms reported Neurological/Psychological: No symptoms reported Physical Exam - Vital signs Vitals: Temp Pulse Resp BP Pulse Ox 97.9 F 88 20 152/70 H 100 12/02/19 13:35 12/02/19 13:35 12/02/19 13:35 12/02/19 13:35 12/02/19 13:35 Interpretation: Hypertensive. No: Tachycardic, Hypoxic, Tachypneic, Febrile - Notes Notes: Adult General: GENERAL: Alert, interacts well. No acute distress HEAD: Normocephalic, atraumatic EYES: Pupils equal, round and reactive to light. Extraocular movements intact. ENT: Airway patent. Nares patent. NECK: Full range of motion. Supple. Trachea midline. No lymphadenopathy. LUNGS: Clear to auscultation bilaterally, no wheezes, rales, or rhonchi. No respiratory distress. Nontender chest wall. HEART: Regular rate and rhythm. No murmurs, rubs or gallops. ABDOMEN: Soft, nontender. Nondistended. (-) Philipp sign. Bowel sounds present in all 4 quadrants. No rebound, guarding or masses. GENITOURINARY: Deferred EXTREMITIES: Moves all 4 extremities spontaneously. No edema, normal radial and dorsal pedis pulses bilaterally. No cyanosis. BACK: No cervical, thoracic, lumbar midline tenderness. No saddle anesthesia, normal distal neurovascular exam. Moves all extremities with full range of motion. NEUROLOGICAL: Alert and oriented x3. Normal speech. Cranial nerves II through XII grossly intact. Strength 5/ 5 in all extremities. PSYCH: Normal affect, normal mood. SKIN: Warm, dry, normal turgor. No rashes or lesions noted. Course - Re-evaluation Re-evalutation: 12/02/19 19:21 Patient with unremarkable physical exam. Her chest x-ray does show ill-defined irregular opacity possible for atelectasis or airspace disease. Discussed with Dr. evans he suspects that this is likely pneumonia. He recommended a repeat chest x-ray. I was contacted by the x-ray tech and informed her that it looks overpenetrated due to have the radiologist and how he put it into the system. Patient was walked up and down the hallway was able to maintain oxygen saturations of 100% on room air. She is not tachycardic. EKG is unremarkable. Her white count is not elevated. BNP is 49. Both her troponins are negative. I have also ordered her evening dose of metformin. Patient is also been swabbed for COVID. I discussed quarantine precautions with her. I have ordered antibiotics for pneumonia. I recommend that she follows up with her primary care provider soon as possible. Also discussed that she may return emergency department for worsening symptoms or development of new symptoms. Patient acknowledges and verbalizes understanding of instructions and plan. All questions answered. - Vital Signs Vital signs: Temp Pulse Resp BP Pulse Ox 97.7 F 88 22 H 133/81 H 99 12/02/19 19:26 12/02/19 13:35 12/02/19 19:26 12/02/19 19:26 12/02/19 19:26 - Laboratory Result Diagrams: 12/02/19 14:43 12/02/19 14:43 Laboratory results interpreted by me: 12/02/19 12/02/19 12/02/19 14:43 14:43 16:50 RBC 5.88 H Hgb 16.1 H Hct 47.5 H Glucose 265 H Urine Glucose (UA) 150 H - EKG Interpretation by Me Additional EKG results interpreted by me: 12/03/19 00:55 HR of 84, Sinus rhythm, IN interval of 216. QT of 392. No St segment elevations. Discharge - Discharge Clinical Impression: Person under investigation for COVID-19 Pneumonia Qualifiers: Pneumonia type: due to unspecified organism Laterality: bilateral Lung location: lower lobe of lung Qualified Code(s): J18.9 - Pneumonia, unspecified organism Condition: Stable Disposition: HOME, SELF-CARE Additional Instructions: There are findings on the chest x-ray that are concerning for pneumonia. I have prescribed you an antibiotic for this. Please take the antibiotics as prescribed. You have also been tested for COVID. Please follow the discharge instructions in regards to being a person under investigation. Recommend that you self isolate until you have the results from the health department. Please also return to the emergency department for worsening symptoms or development of new symptoms. Prescriptions: Azithromycin [Zithromax 250 mg Tablet] 250 mg PO ASDIR PRN #6 tablet PRN Reason: Referrals: JENNIFER ARNOLD MD [Primary Care Provider] - Follow up as needed
[2019-12-02] MEDS ORDERED: AZITHROMYCIN 250 MG TABLET PO ONE (19:10)
[2019-12-02] MEDS ORDERED: DEXAMETHASONE 4 MG TABLET PO ONE (19:13)
[2019-12-02] MEDS ORDERED: METFORMIN HCL 500 MG TABLET PO ONE (19:20)
[2019-12-02 19:29] VITALS: BP 133/81
--- NOTE | 2019-12-02 19:42 | EKG REPORT ---
SEVERITY:- ABNORMAL ECG - SINUS RHYTHM CONSIDER LEFT VENTRICULAR HYPERTROPHY BORDERLINE T ABNORMALITIES, INFERIOR LEADS : Confirmed by: Minna Pelayo MD 02-Dec-2019 19:41:20
== END 2019-12-02 20:25 | disposition home or self-care (01) ==
LOC: ER 13:29
DX: J18.9 Pneumonia, unspecified organism (principal); R06.02 Shortness of breath; R05 Cough; R07.9 Chest pain, unspecified; R11.0 Nausea; I10 Essential (primary) hypertension; Z20.828 Contact with and (suspected) exposure to other viral communicable diseases; J45.909 Unspecified asthma, uncomplicated; E11.9 Type 2 diabetes mellitus without complications; Z88.8 Allergy status to other drugs, medicaments and biological substances
CPT/HCPCS: 93005; 99285; 36415; 87070; 87205; 82553; 82550; 85025; 87077; 80053; 81001; 84484; 83880; 71045; 93010; U0003; A9270 ×4; C9803; 87635; J8540

== ENCOUNTER → 2019-12-02 | Outpatient (CLI) | payer MEDICARE ==
[2019-12-02 13:38] VITALS: BP 205/105
--- NOTE | 2019-12-02 13:38 | ER RDC ASSESSMENT REPORT ---
Intake - In the Last 14 days Have you traveled outside [place]?: No Have you been in close contact with someone CONFIRMED: No Worked in Healthcare?: No - Symptoms Subjective Fever([place] feverish): No Chills: No Muscule Aches: Yes Runny Nose: No Sore Throat: No Cough (New or worsening chronic cough): Yes Shortness of breath: Yes Nausea or Vomiting: No Headache: Yes Abdominal Pain: No Diarrhea(3 or more loose stools in last 24 hours): No - Do you have any of the following Chronic lung disease: Asthma or emphysema or COPD: Yes Cystic Fibrosis: No Diabetes: Yes High Blood Pressure: Yes Cardiovascular Disease: Yes Chronic Kidney Disease: No Chronic Liver Disease: No Chronic blood disorder like Sickle Cell Disease: No Weak immune system due to disease or medication: No Neurologic condition that limits movement: No Developmental delay - Moderate to Severe: No Recent (within past 2 weeks) or current : No - Objective Temperature: 98.2 F Pulse Rate: 93 Respiratory Rate: 18 Blood Pressure: 205/105 O2 Sat by Pulse Oximetry: 98 Objective: Given above, testing performed: none- sent directly to ER for near syncope Disposition: To ED General - General Stated Complaint: chest pain, SOB Time Seen by Provider: 12/02/19 13:25 Mode of Arrival: Wheelchair Notes: assisted to chair by [facility] staff for near syncopal episode - HPI Notes: 64-year-old female walked up to [facility] window to present for COVID-19 testing stating that her ride had left her here. While at the window patient complained of feeling like she was about to pass out and was noted to be very short of breath and clammy. Patient was assisted into a chair by [facility] staff. Vitals were obtained and it was discerned that patient had been complaining of chest pain, moderate to severe shortness of breath, weakness, fatigue, cough x3 to 4 days. She has not yet sought any care for these concerns. Patient was sent directly over to ER for further evaluation due to near syncopal episode as well as complaints of chest pain, moderate shortness of breath, and very elevated blood pressure. middle school technology teacher retrieved patient in wheelchair to take her over for evaluation. - Related Data Allergies/Adverse Reactions: shellfish derived Allergy (Verified 07/02/19 14:22) tomato Allergy (Verified 07/02/19 14:22) Aspirin Allergy (Severe, Uncoded 07/02/19 14:28) Past Medical History - General Information source: Patient - Social History Family History: None, Other - Past Medical History Cardiac Medical History: Reports: Hx Hypercholesterolemia, Hx Hypertension Pulmonary Medical History: Reports: Hx Asthma EENT Medical History: Reports: None Neurological Medical History: Reports: None Endocrine Medical History: Reports: Hx Diabetes Mellitus Type 2 - Not taking medications Renal/ Medical History: Reports: None Malignancy Medical History: Reports: None GI Medical History: Reports: None Musculoskeletal Medical History: Reports None Skin Medical History: Reports None Psychiatric Medical History: Reports: None Traumatic Medical History: Reports: None Infectious Medical History: Reports: None Past Surgical History: Reports: Hx Breast Surgery - L cyst removed, Hx Hysterectomy - partial, Hx Orthopedic Surgery - bone spurs removed Physical Exam - Vital signs Interpretation: Hypertensive - General General appearance: Anxious In distress: Mild Notes: PHYSICAL EXAMINATION: GENERAL: Ill-appearing, mild distress. HEAD: Atraumatic, normocephalic. EYES: sclera anicteric, conjunctiva are normal. ENT: nares patent. Moist mucous membranes. NECK: Normal range of motion, supple without lymphadenopathy. LUNGS: + increased work of breathing. Lung sounds bilateral scattered rhonchi. No wheezes. HEART: Regular rate and rhythm without murmurs. ABDOMEN: Soft, nontender, normal bowel sounds, no guarding. EXTREMITIES: Normal range of motion, no pitting edema. No cyanosis. + generalized weakness. NEUROLOGICAL: A&O x 3. Normal speech. PSYCH: anxious, normal affect. SKIN: mildly clammy, no rashes or lesions noted RDC Discharge - Discharge Clinical Impression: Hypertensive urgency Chest pain Qualifiers: Chest pain type: unspecified Qualified Code(s): R07.9 - Chest pain, unspecified Dyspnea Qualifiers: Dyspnea type: shortness of breath Qualified Code(s): R06.02 - Shortness of breath; R06.00 - Dyspnea, unspecified; R06.01 - Orthopnea Condition: Fair Disposition: To ED
== END ==
LOC: RDC 13:11
PROVIDERS: ATTEND Registered Nurse
DX: I16.0 Hypertensive urgency (principal); R07.9 Chest pain, unspecified; R06.02 Shortness of breath

== ENCOUNTER → 2020-03-14 | Outpatient (CLI) | payer MEDICARE ==
[2020-03-14 13:21] LABS: CHOLESTEROL 262.48 mg/dL (0-200); TRIGLYCERIDES 176 mg/dL (<150)
[2020-03-14 13:32] LABS: DIRECT LDL 203 mg/dL (<100)
[2020-03-14 13:37] LABS: VLDL CHOLESTEROL 35.2 mg/dL (10-31)
[2020-03-17 13:37] LABS: CREATININE URINE 88.5 mg/dL (Not Estab.); MICROALBUMIN URINE 13.5 ug/mL (Not Estab.)
== END ==
LOC: OD 10:58
PROVIDERS: ATTEND Family Medicine
DX: E11.9 Type 2 diabetes mellitus without complications (principal)
CPT/HCPCS: 36415; 80061; 82043; 82570; 83036